=== PATIENT | female | born 1990 | race Hispanic/Latino ===

== ENCOUNTER 2016-07-21 21:35 | Emergency (ER) | payer MEDICAID, OTHER ==
--- NOTE | 2016-07-21 22:09 | ED PDOC ---
Arrival/HPI <Keith Potts - Last Filed: 07/21/16 22:51> - History of Present Illness Time/Duration: Prior to Arrival, 1 hour Quality: Dullness Severity Level: 9 Activities at Onset: Rest, Light <Jean Claude Al - Last Filed: 07/21/16 23:45> - General Chief Complaint: Chest Pain Time Seen by Provider: 07/21/16 21:42 - History of Present Illness Narrative History of Present Illness (Text): 07/21/16 21:59 This is 26 year old female without PMH presenting to the ED with complaint of substernal chest pain since 9pm this evening. The patient notes that she was putting her children to bed when she started to feel a dull substernal chest pain. The patient states that the pain increased and she started to notice weakness in her upper extremities followed by her lower extremities. The patient reports that the pain is positional and reproducible with palpation. The patient has never had an episode of chest pain in the past. The patient denies fever, chills, headache, palpitations, SOB, cough, abdominal pain, dysphagia, changes in bowel/bladder, and extremity paresthesias. PMH: None Allergy: NKDA Surg: x 2, appendectomy Soc: Denies Tobacco/Illicit Drugs, occasional EtOH (Jean Claude Al) Past Medical History - Provider Review Nursing Documentation Reviewed: Yes - Past History Past History: No Previous - Infectious Disease Hx of Infectious Diseases: None - Tetanus Immunization Tetanus Immunization: Unknown - Reproductive Menopause: No - Past Medical History Past Medical History: No Previous - Psychiatric Hx Substance Use: No <Jean Claude Al - Last Filed: 07/21/16 23:45> Family/Social History - Physician Review Nursing Documentation Reviewed: Yes Family/Social History: No Known Family HX Smoking Status: Never Smoked Hx Alcohol Use: No Hx Substance Use: No <Jean Claude Al - Last Filed: 07/21/16 23:45> Allergies/Home Meds <Keith Potts - Last Filed: 07/21/16 22:51> <Jean Claude Al - Last Filed: 07/21/16 23:45> Allergies/Adverse Reactions: Allergies No Known Allergies Allergy (Verified 07/21/16 21:49) Home Medications: Home Meds Medication Instructions Recorded Confirmed No Known Home Med 07/21/16 07/21/16 Review of Systems - Physician Review All systems were reviewed & negative as marked: Yes - Review of Systems Constitutional: absent: Fatigue, Fevers Eyes: absent: Vision Changes, Photophobia ENT: absent: Hearing Changes, Tinnitus Respiratory: absent: SOB, Cough Cardiovascular: Chest Pain. absent: Palpitations, Edema Gastrointestinal: absent: Abdominal Pain, Nausea, Vomiting Genitourinary Female: absent: Dysuria, Frequency Musculoskeletal: absent: Arthralgias, Back Pain Skin: absent: Rash, Pruritis Neurological: absent: Headache, Dizziness Endocrine: absent: Diaphoresis Hemo/Lymphatic: absent: Adenopathy Psychiatric: absent: Anxiety <Jean Claude Al - Last Filed: 07/21/16 23:45> Physical Exam Vital Signs Reviewed: Yes Temperature: Afebrile Blood Pressure: Hypertensive Pulse: Tachycardic Respiratory Rate: Normal Appearance: Positive for: Well-Appearing, Non-Toxic Pain Distress: Mild Mental Status: Positive for: Alert and Oriented X 3 - Systems Exam Head: Present: Atraumatic, Normocephalic Pupils: Present: PERRL. No: Pinpoint Extroacular Muscles: Present: EOMI. No: Entrapment Conjunctiva: Present: Normal. No: Icteric Mouth: Present: Moist Mucous Membranes Neck: Present: Normal Range of Motion. No: Lymphadenopathy Respiratory/Chest: Present: Clear to Auscultation, Good Air Exchange. No: Respiratory Distress, Accessory Muscle Use Cardiovascular: Present: Normal S1, S2, Peripheal Pulses Present, Tachycardic. No: Murmurs Abdomen: Present: Normal Bowel Sounds. No: Tenderness, Distention, Peritoneal Signs Upper Extremity: Present: Normal Inspection, Normal ROM, NORMAL PULSES, Neurovascularly Intact. No: Cyanosis, Edema Lower Extremity: Present: Normal Inspection, NORMAL PULSES, Neurovascularly Intact. No: Edema, CALF TENDERNESS Neurological: Present: GCS=15 Skin: Present: Warm, Dry, Normal Color. No: Rashes Psychiatric: Present: Alert, Oriented x 3 <Jean Claude Al - Last Filed: 07/21/16 23:45> Vital Signs Temp Pulse Resp BP Pulse Ox 07/21/16 21:47 97.9 F 100 H 22 153/86 H 100 Medical Decision Making - Lab Interpretations I have reviewed the lab results: Yes - RAD Interpretation Patient Representative: ED Physician - EKG Interpretation Interpreted by ED Physician: Yes Type: 12 lead EKG <Keith Potts - Last Filed: 07/21/16 22:51> Re-evaluation Time: 23:00 Reassessment Condition: Re-examined - Lab Interpretations Interpretation: No clinic. lab abnormalty (K= 3.2- replaced with 40meq K-Dur) - RAD Interpretation Patient Representative: Radiologist - EKG Interpretation Interpreted by ED Physician: Yes Type: 12 lead EKG <Jean Claude Al - Last Filed: 07/21/16 23:45> ED Course and Treatment: Impression: Pt seen and evaluated with medical billing associate. Pt, with no significan past medical history, presented for positional chest pain since 21:00 tonight, reproducible with palpation. Aware and agree with HPI, clinical findings, plan , and management. Plan: -- EKG -- CXR -- Labs, cardiac enzymes, TSH -- Urinalysis -- Xanax -- Reassess and disposition (Keith Potts) 07/21/16 22:19 Impression: This is 26 year old female without PMH presenting to the ED with complaint of substernal chest pain since 9pm this evening. The patient appears anxious presently. Differential: Anxiety Attack MO ACS Angina GERD Plan: EKG CXR CBC, CMP, Cardiac ISO, Mag, Phos, TSH Xanax 0.5mg Prior Visits: No inpatient admissions Progress Note: Patient seen and examined at the bedside. Patient appears anxious. Patient sating well on room air, tachycardic on telemetric monitoring. EKG showed no abnormalities. Patient will be worked up for cardiac abnormality, and will be given xanax in the mean time for anxiety relief. Lab work pending. 07/21/16 23:24 The patient was re-evaluated after dose of xanax. Patient reports feeling much better. Troponin pending. Labs grossly normal. Potassium 3.2, replaced with 40meq K-dur. Patient ambulating without issue. Patient denies chest pain at this time. 07/21/16 23:41 Patient agreeable for discharge. Patient feels fine, and states she is OK to go home. At this time, the patient is medically stable for discharge. Patient instructed to follow up with her PMD as an outpatient. (Jean Claude Al) - Lab Interpretations Lab Results: 07/21/16 22:45 07/21/16 22:45 Lab Results 07/21/16 23:00: Urine Color Yellow, Urine Appearance Clear, Urine pH 7.0, Ur Specific [place] 1.015, Urine Protein Negative, Urine Glucose (UA) Negative, Urine Ketones Negative, Urine Blood Trace-lysed H, Urine Nitrate Negative, Urine Bilirubin Negative, Urine Urobilinogen 0.2, Ur Leukocyte Esterase Negative , Urine RBC 0 - 2, Urine WBC 0 - 2, Ur Epithelial Cells 1 - 3, Urine Bacteria Occ, Urine HCG, Qual Negative 07/21/16 22:45: WBC 6.8 D, RBC 4.13, Hgb 11.8 L, Hct 36.4, MCV 88.1, MCH 28.6, MCHC 32.4, RDW 13.4, Plt Count 272, MPV 11.3 H, Gran % 51.0, Lymph % (Auto) 40.5 H, [place] % (Auto) 6.3 H, Eos % (Auto) 1.9, Baso % (Auto) 0.3, Gran # 3.49, Lymph # 2.8, [place] # 0.4, Eos # 0.1, Baso # 0.02, Sodium 137, Potassium 3.2 L, Chloride 101, Carbon Dioxide 24, Anion Gap 15, BUN 12, Creatinine 0.7, Est GFR ( Amer) > 60, Est GFR (Non-Af Amer) > 60, Random Glucose 102, Calcium 9.0 , Phosphorus 2.8, Magnesium 1.8, Total Bilirubin 1.0, AST 22, ALT 16, Alkaline Phosphatase 102, Lactate Dehydrogenase 412, Total Creatine Kinase 45, Troponin I < 0.01, Total Protein 8.4 H, Albumin 4.6, Globulin 3.8, Albumin/Globulin Ratio 1.2 - RAD Interpretation Narrative RAD Interpretations (Text): 07/21/16 23:44 Negative for acute pulmonary pathology (Jean Claude Al) Radiology Orders: 07/21/16 22:26 CHEST PORTABLE [RAD] Stat - EKG Interpretation EKG Interpretation (Text): 07/21/16 22:24 NSR, no st or t wave abnormalities (Jean Claude Al) - Medication Orders Current Medication Orders: Discontinued Medications Alprazolam (Xanax) 0.5 mg PO STAT STA PRN Reason: Protocol Stop: 07/21/16 22:26 Last Admin: 07/21/16 23:02 Dose: 0.5 MG Behavioural Document 07/21/16 23:02 (Rec: 07/21/16 23:02 [facility] [place]-[id number]) Maintenance Maintenance Dose No Nonmedicinal Nonmedicinal Interventions See nurse's notes Behavior Behavior for Medication: Anxiety Potassium Chloride (K-Dur 20 Meq Er Tab) 40 meq PO STAT STA Stop: 07/21/16 23:20 - PA / JOB DEVELOPMENT SPECIALIST / Resident Statement / has reviewed & agrees with the documentation as recorded. / has examined the patient and agrees with the treatment plan. <Keith Potts - Last Filed: 07/21/16 22:51> Disposition/Present on Arrival <Keith Potts - Last Filed: 07/21/16 22:51> - Present on Arrival Any Indicators Present on Arrival: No History of DVT/PE: No History of Uncontrolled Diabetes: No Urinary Catheter: No History of Decub. Ulcer: No History Surgical Site Infection Following: None - Disposition Have Diagnosis and Disposition been Completed?: Yes Disposition Time: 23:30 Patient Plan: Discharge <Jean Claude Al - Last Filed: 07/21/16 23:45> - Disposition Diagnosis: Chest pain Disposition: HOME/ ROUTINE Condition: GOOD Discharge Instructions (ExitCare): Chest Pain (ED), Anxiety (ED) Print Language: SALVADOREAN Additional Instructions: 1.) Follow up with PMD following discharge 2.) If symptoms return, please return to the ED for evaluation
[2016-07-21 22:54] LABS: ADD MANUAL DIFF? NO
[2016-07-21 23:10] LABS: URINE BILIRUBIN NEGATIVE (NEGATIVE); URINE BLOOD TRACE-LYSED (NEGATIVE); URINE GLUCOSE (UA) NEGATIVE (NEGATIVE); URINE KETONE NEGATIVE (NEGATIVE); URINE LEUKOCYTE ESTERASE NEGATIVE Leu/uL (NEGATIVE); URINE PROTEIN NEGATIVE mg/dL (<30 mg/dL); URINE UROBILINOGEN 0.2 E.U./dL (<1 E.U./dL)
[2016-07-21 23:10] LABS: ALB/GLOB RATIO 1.2 (1.1-1.8); ALKALINE PHOSPHATASE 102 U/L (38-133); ALT/SGPT 16 U/L (7-56); AST/SGOT 22 U/L (15-39); BLOOD UREA NITROGEN 12 mg/dL (7-21); CARBON DIOXIDE 24 mmol/L (21-33); CHLORIDE 101 mmol/L (98-107); GFR AFRICAN-AMERICAN > 60; GLUCOSE,RANDOM 102 mg/dL (70-110); MAGNESIUM 1.8 mg/dL (1.7-2.2); PHOSPHOROUS 2.8 mg/dL (2.5-4.5); POTASSIUM 3.2 mmol/L (3.6-5.0); SODIUM 137 mmol/L (132-148); TOTAL PROTEIN 8.4 g/dL (5.8-8.3)
[2016-07-21 23:11] LABS: BASO # 0.02 K/mm3 (0.0-2.0); BASO % 0.3 % (0.0-3.0); EOS # 0.1 (0.0-0.7); EOS % 1.9 % (1.5-5.0); GRAN # 3.49 (1.4-6.5); HEMATOCRIT 36.4 % (36.0-48.0); LYMPH # 2.8 (1.2-3.4); LYMPH % 40.5 % (22.0-35.0); MEAN CELL VOLUME 88.1 fL (80.0-105.0); MEAN CORPUSCULAR HEMOGLOBIN 28.6 pg (25.0-35.0); MEAN CORPUSCULAR HGB CONC 32.4 g/dl (31.0-37.0); MEAN PLATELET VOLUME 11.3 fl (7.0-11.0); MONO # 0.4 (0.1-0.6); MONO % 6.3 % (1.0-6.0); PLATELET COUNT 272 10^3/uL (120.0-450.0); RED CELL DISTRIBUTION WIDTH 13.4 % (11.5-14.5); WHITE BLOOD COUNT 6.8 10^3/ul (4.5-11.0)
[2016-07-21 23:14] LABS: URINE APPEARANCE CLEAR (CLEAR); URINE COLOR YELLOW (YELLOW)
[2016-07-21 23:19] LABS: URINE BACTERIA OCC (NEG); URINE RBC 0 - 2 /hpf (0-2); URINE WBC 0 - 2 /hpf (0-6)
[2016-07-21] MEDS ORDERED: Potassium Chloride 20 mEq ER Tab PO STA (23:19)
[2016-07-21 23:24] LABS: TROPONIN I < 0.01 ng/mL
[2016-07-22 01:48] VITALS: BP 138/80; PULSE 84; RESP 18; TEMP 98; O2SAT 99
--- NOTE | 2016-07-22 08:47 | RAD ---
HISTORY: chest pain COMPARISON: No prior. FINDINGS: LUNGS: No active pulmonary disease. PLEURA: No significant pleural effusion identified, no pneumothorax apparent. CARDIOVASCULAR: Normal. OSSEOUS STRUCTURES: No significant abnormalities. VISUALIZED UPPER ABDOMEN: Normal. OTHER FINDINGS: None. IMPRESSION: No active disease.
--- NOTE | 2016-07-22 15:43 | CARD ---
APPROVED REPORT EKG Measurement Heart [id number] <Conclusion> Normal sinus rhythm Normal ECG
== END 2016-07-21 23:55 | disposition home or self-care (01) ==
LOC: ED 21:35
DX: R07.9 Chest pain, unspecified (principal)

== ENCOUNTER 2016-10-14 14:00 | Emergency (ER) | payer MEDICAID, OTHER ==
--- NOTE | 2016-10-14 14:34 | ED PDOC ---
Arrival/HPI - General Chief Complaint: Headache Time Seen by Provider: 10/14/16 14:23 Historian: Patient - History of Present Illness Narrative History of Present Illness (Text): 10/14/16 14:34 26 year old female presents to the emergency department with headache, fever/ chills, body aches, and neck pain for the past two days. Patient states headache is worse when bending down. Patient also reports frequency, pain on urination, suprapubic discomfort. Denies cough or photophobia. Time/Duration: < week Symptom Onset: Gradual Symptom Course: Unchanged Modifying Factors (Text): None Past Medical History - Provider Review Nursing Documentation Reviewed: Yes - Past History Past History: No Previous - Infectious Disease Hx of Infectious Diseases: None - Tetanus Immunization Tetanus Immunization: Unknown - Past Medical History Past Medical History: No Previous - Psychiatric Hx Psychophysiologic Disorder: No Hx Substance Use: No - Surgical History Hx Section: Yes Family/Social History - Physician Review Nursing Documentation Reviewed: Yes Family/Social History: Unknown Family HX Smoking Status: Never Smoked Hx Alcohol Use: No Hx Substance Use: No Allergies/Home Meds Allergies/Adverse Reactions: Allergies No Known Allergies Allergy (Verified 10/14/16 14:17) Review of Systems - Physician Review All systems were reviewed & negative as marked: Yes Physical Exam - Physical Exam Narrative Physical Exam (Text): - Review of Systems Constitutional: Fevers, Chills absent: Fatigue, Weight Change Eyes: Normal absent: photophobia ENT: Normal Respiratory: Normal absent: SOB, Cough, Sputum Cardiovascular: Normal absent: Chest pain, Palpitations, Syncope Gastrointestinal: Suprapubic discomfort absent: Diarrhea, Nausea, Vomiting Genitourinary: Dysuria, Frequency absent: Hematuria Musculoskeletal: Arthralgias, Back Pain, Neck Pain Skin: Normal Neurological: Normal absent: Focal Weakness Endocrine: Normal Hemo/Lymphatic: Normal Psychiatric: Normal - Physical exam Patient appears age appropriate, speaking full sentences without difficulty - Systems Exam Head: Present: Atraumatic, Normocephalic Pupils: Present: PERRL Extraocular Muscles: Present: EOMI Conjunctiva: Present: Normal Mouth: Present: Moist Mucous Membranes Neck: Present: Tenderness to palpation, worse with range of motion Respiratory/Chest: Present: Clear to Auscultation, Good Air Exchange. No: Respiratory Distress, Accessory Muscle Use, Tachypneic Cardiovascular: Present: Regular Rate and Rhythm, Normal S1, S2, Peripheral Pulses Present. No: Murmurs Abdomen: Present: Suprapubic tenderness to palpation, Normal Bowel Sounds No: Peritoneal Signs, Rebound, Guarding, Distention Back: Present: Normal Inspection. No: Midline Tenderness, Paraspinal Tenderness Upper Extremity: Present: Normal Inspection. No: Cyanosis, Edema Lower Extremity: Present: Normal Inspection. No: Edema Neurological: Present: GCS=15, Speech Normal, cranial nerves II through XII fully intact with no cerebellar abnormality, neuro-sensory fully intact. No focal neurological deficits. Skin: Present: Warm, Dry, Normal Color. No: Rashes Lymphatic: Present: OX3, NI, NC Psychiatric: Present: Alert, Oriented x 3, Normal Insight, Normal Concentration Vital Signs Reviewed: Yes Vital Signs Temp Pulse Resp BP Pulse Ox 10/14/16 18:26 98.6 F 86 19 100/59 L 100 10/14/16 16:41 99.7 F H 10/14/16 14:57 102.6 F H 10/14/16 14:46 102.6 F H 10/14/16 14:17 99.8 F H 118 H 18 116/74 97 Temperature: Afebrile Blood Pressure: Normal Pulse: Tachycardic Respiratory Rate: Normal Appearance: Positive for: Well-Appearing, Non-Toxic Mental Status: Positive for: Alert and Oriented X 3 Medical Decision Making ED Course and Treatment: Impression: 26 year old female presents to the emergency department with headache, fever/chills, body aches, and neck pain for the past two days. On physical exam, patient has tenderness to palpation of the neck, worse with range of motion, and suprapubic tenderness to palpation. Differential Diagnosis include but are not limited to: Viral illness vs meningitis vs pyelonephritis Plan: -- Blood culture -- Reassess and disposition Prior Visits: Notes and results from previous visits were reviewed. Patient had bloodwork done yesterday which showed Leukocytosis. No electrolyte abnormalities. Urine showed evidence of infection. Microbiology showed gram negative rods. Progress Notes: PROCEDURE: LUMBAR PUNCTURE Performed by the emergency provider Time: 15:45 Consent: Informed consent, after discussion of the risks, benefits, and alternatives to the procedure, was obtained Timeout: A timeout to verify the correct patient, procedure, and site was performed immediately prior to the procedure. Indication: r/o meningitis Patient's position: sitting. Anesthesia: Local anesthesia: lido/epi. See MAR for details. Preparation: Patient was prepped and draped in the usual sterile fashion and sterile technique was used. The landmarks were identified. Needle size: A 20 gauge spinal needle. Lumbar entry space: L4-5 level. Fluid appearance: Clear Post-procedure: Site cleansed and adhesive bandage applied. The patient tolerated the procedure well with no immediate complications. CSF was sent to lab for analysis. PROCEDURE: CT Abdomen and Pelvis with contrast Cleaner And Polisher : Gerard Crandall MD Report Date : 10/14/2016 16:36:59 KIDNEYS AND URETERS: There is a poorly defined area of edema and diminished enhancement in the upper pole of the left kidney. This finding is suspicious for pyelonephritis. Clinical correlation is suggested. This finding is best seen on axial image 70 and coronal image 68. There is also minimal mural enhancement of the proximal ureter which is also seen associated with urinary tract infection. IMPRESSION: Patchy poorly defined area of diminished enhancement in the upper pole of the left kidney suspicious for pyelonephritis. There is also mural thickening in the urinary bladder which may represent cystitis Chest xray interpreted by ED physician shows no pneumothorax, no cardiomegaly, no infiltrates 10/14/16 19:14 pt's leukocytosis resolving on today's labs CSF with no evidence for meningitis pt is afebrile and hemodynamically stable, in no distress states she feels comfortable being dc'd home with outpatient f/u Pt states she understands to return to the ER right away for new or worsening symptoms or for inability to f/u with PMD or specialist as instructed. Patient states that she fully agrees with and understands discharge instructions. States that she agrees with the plan and disposition. Verbalized and repeated discharge instructions and plan. I have given the patient opportunity to ask any additional questions. - Critical Care Critical Care Minutes: 30 minutes - Lab Interpretations Lab Results: 10/14/16 14:45 10/14/16 14:45 Lab Results 10/14/16 16:15: Fluid Type Cancelled, CSF Volume Cancelled, CSF Appearance Cancelled, CSF WBC Cancelled, CSF RBC Cancelled, CSF Total Cell Counted Cancelled, CSF Neutrophils Cancelled, CSF Lymphocytes Cancelled, CSF Monos/ Macrophages Cancelled, CSF Comment Cancelled 10/14/16 16:15: CSF Glucose 61, CSF Total Protein 22.0 10/14/16 15:57: Fluid Type Spinal fluid, CSF Volume 1, CSF Appearance Clear/ colorless, CSF WBC 2.0, CSF RBC 40.0 H, CSF Total Cell Counted Pending 10/14/16 15:00: Urine Color Yellow, Urine Appearance Cloudy, Urine pH 7.5, Ur Specific [place] 1.020, Urine Protein 30 H, Urine Glucose (UA) Negative, Urine Ketones Negative, Urine Blood Moderate H, Urine Nitrate Positive H, Urine Bilirubin Negative, Urine Urobilinogen >=8.0, Ur Leukocyte Esterase Small H, Urine RBC 5 - 10, Urine WBC Tntc, Ur Epithelial Cells 10 - 12, Urine Bacteria Many 10/14/16 14:45: Sodium 138, Chloride 103, Potassium 3.5 L, Carbon Dioxide 24, Anion Gap 15, BUN 8, Creatinine 0.8, Est GFR ( Amer) > 60, Est GFR (Non- Af Amer) > 60, Random Glucose 109, Calcium 9.1, Total Bilirubin 1.4 H, AST 63 H , ALT 74 H, Alkaline Phosphatase 135 H, Total Protein 8.3, Albumin 4.4, Globulin 3.9, Albumin/Globulin Ratio 1.1 10/14/16 14:45: pO2 58 H, VBG pH 7.36, VBG pCO2 44.0, VBG HCO3 24.9, VBG Total CO2 26.3, VBG O2 Sat (Calc) 92.6 H, VBG Base Excess -0.8 L, VBG Potassium 3.3 L , Sodium 139.0, Chloride 108.0 H, Glucose 110 H, Lactate 1.2, FiO2 21.0, Venous Blood Potassium 3.3 L 10/14/16 14:45: PT 12.8 H, INR 1.19 H, APTT 31.2 H 10/14/16 14:45: WBC 11.0 D, RBC 3.93, Hgb 11.1 L, Hct 34.1 L, MCV 86.8, MCH 28.2, MCHC 32.6, RDW 13.7, Plt Count 249, MPV 10.3, Gran % 82.6 H, Lymph % (Auto ) 9.4 L, [place] % (Auto) 7.8 H, Eos % (Auto) 0.0 L, Baso % (Auto) 0.2, Gran # 9.06 H, Lymph # 1.0 L, [place] # 0.9 H, Eos # 0.0, Baso # 0.02 - RAD Interpretation Radiology Orders: 10/14/16 14:36 CHEST PORTABLE [RAD] Stat 10/14/16 14:39 ABD & PELVIS IV CONTRAST ONLY [CT] Stat - Medication Orders Current Medication Orders: Discontinued Medications Acetaminophen (Tylenol 325mg Tab) 975 mg PO STAT STA Stop: 10/14/16 14:38 Last Admin: 10/14/16 14:57 Dose: 975 mg Ceftriaxone Sodium (Rocephin 2 Gm Ivpb) 2 gm in 100 mls @ 100 mls/hr IVPB STAT STA PRN Reason: Protocol Stop: 10/14/16 15:34 Last Admin: 10/14/16 15:15 Dose: 100 mls/hr Sodium Chloride (Sodium Chloride 0.9%) 2,000 mls @ 1,000 mls/hr IV .Q2H STA Stop: 10/14/16 16:36 Last Admin: 10/14/16 15:02 Dose: 1,000 mls/hr Vancomycin HCl (Vancomycin 1gm) 1 gm in 250 mls @ 133.333 mls/hr IVPB STAT STA PRN Reason: Protocol Stop: 10/14/16 16:38 Last Admin: 10/14/16 16:48 Dose: 133.333 mls/hr Iohexol (Omnipaque 350 100 Ml) Confirm Administered Dose 350 mg .ROUTE .STK-MED ONE Stop: 10/14/16 14:43 Ketorolac Tromethamine (Toradol) 30 mg IVP STAT STA Stop: 10/14/16 14:38 Last Admin: 10/14/16 14:57 Dose: 30 mg Morphine Sulfate (Morphine) 6 mg IVP STAT STA Stop: 10/14/16 15:47 Last Admin: 10/14/16 15:51 Dose: 6 mg Morphine Sulfate (Morphine) Confirm Administered Dose 10 mg .ROUTE .STK-MED ONE Stop: 10/14/16 15:52 Last Admin: 10/14/16 16:45 Dose: - Scribe Statement The provider has reviewed the documentation as recorded by the Isacc Vo Provider Scribe Attestation: All medical record entries made by the Scribe were at my direction and personally dictated by me. I have reviewed the chart and agree that the record accurately reflects my personal performance of the history, physical exam, medical decision making, and the department course for this patient. I have also personally directed, reviewed, and agree with the discharge instructions and disposition. Disposition/Present on Arrival - Present on Arrival Any Indicators Present on Arrival: No History of DVT/PE: No History of Uncontrolled Diabetes: No Urinary Catheter: No History of Decub. Ulcer: No History Surgical Site Infection Following: None - Disposition Have Diagnosis and Disposition been Completed?: Yes Diagnosis: Pyelonephritis Disposition: HOME/ ROUTINE Disposition Time: 19:20 Patient Plan: Discharge Condition: GOOD Discharge Instructions (ExitCare): Acute Pyelonephritis (ED), Fever in Adults ( ED) Additional Instructions: PLEASE RETURN TO THE EMERGENCY DEPARTMENT FOR NEW OR WORSENING SYMPTOMS. RETURN RIGHT AWAY IF YOU CANNOT FOLLOW UP WITH YOUR PRIMARY CARE DOCTOR, CLINIC, OR SPECIALIST IN 1-2 DAYS. RETURN TO THE ER RIGHT AWAY FOR FEVER, CHILLS, WEAKNESS, BACKK OR NECK PAIN, HEADACHE. Prescriptions: Cefuroxime Axetil [Cefuroxime] 500 mg PO BID PRN #12 tablet PRN Reason: Pain, Moderate (4-7) Ibuprofen [Motrin] 600 mg PO Q8 PRN #12 tab PRN Reason: Pain, Moderate (4-7) oxyCODONE/Acetaminophen [Percocet 5/325 mg Tab] 1 ea PO BID PRN #6 tab PRN Reason: Pain, Severe (8-10) Referrals: Berna Worley, [Primary Care Provider] - Follow up with primary Bouchra Sung MD [Staff Provider] - Follow up with primary [facility] at [facility] [Outside] - Follow up with primary Forms: WORK NOTE
[2016-10-14] MEDS ORDERED: cefTRIAXone 2 GM IN NS 2 GM/100 ML BAG IVPB STA (14:35)
[2016-10-14] MEDS ORDERED: Vancomycin 1gm in NS 250ml 250 ML IVPB STA (14:35)
[2016-10-14] MEDS ORDERED: Sodium Chloride 0.9% 2,000 ML IV STA (14:37)
[2016-10-14] MEDS ORDERED: Iohexol 350 MG/100 ML VIAL ONE (14:42)
[2016-10-14] MEDS ORDERED: Vancomycin 1gm in NS 250ml 1 GM/250 ML BAG IVPB STA (14:46)
[2016-10-14 15:03] LABS: ADD MANUAL DIFF? NO
[2016-10-14 15:08] LABS: VENOUS BLOOD GAS BASE EXCESS -0.8 mmol/L (0.0-2.0); VENOUS BLOOD PH 7.36 (7.32-7.43)
[2016-10-14 15:13] LABS: BASO # 0.02 K/mm3 (0.0-2.0); BASO % 0.2 % (0.0-3.0); GRAN # 9.06 (1.4-6.5); GRAN % 82.6 % (50.0-68.0); HEMATOCRIT 34.1 % (36.0-48.0); LYMPH % 9.4 % (22.0-35.0); MEAN CELL VOLUME 86.8 fL (80.0-105.0); MEAN CORPUSCULAR HEMOGLOBIN 28.2 pg (25.0-35.0); MEAN CORPUSCULAR HGB CONC 32.6 g/dl (31.0-37.0); MEAN PLATELET VOLUME 10.3 fl (7.0-11.0); MONO # 0.9 (0.1-0.6); MONO % 7.8 % (1.0-6.0); PLATELET COUNT 249 10^3/uL (120.0-450.0); RED CELL DISTRIBUTION WIDTH 13.7 % (11.5-14.5)
[2016-10-14 15:17] LABS: ALB/GLOB RATIO 1.1 (1.1-1.8); ALKALINE PHOSPHATASE 135 U/L (38-133); ALT/SGPT 74 U/L (7-56); AST/SGOT 63 U/L (15-39); BILIRUBIN,TOTAL 1.4 mg/dL (0.2-1.3); BLOOD UREA NITROGEN 8 mg/dL (7-21); CALCIUM 9.1 mg/dL (8.4-10.5); CARBON DIOXIDE 24 mmol/L (21-33); CHLORIDE 103 mmol/L (98-107); GFR AFRICAN-AMERICAN > 60; GLUCOSE,RANDOM 109 mg/dL (70-110); POTASSIUM 3.5 mmol/L (3.6-5.0); SODIUM 138 mmol/L (132-148); TOTAL PROTEIN 8.3 g/dL (5.8-8.3)
[2016-10-14 15:19] LABS: PH,URINE 7.5 (4.7-8.0); URINE BILIRUBIN NEGATIVE (NEGATIVE); URINE BLOOD MODERATE (NEGATIVE); URINE GLUCOSE (UA) NEGATIVE (NEGATIVE); URINE KETONE NEGATIVE (NEGATIVE); URINE LEUKOCYTE ESTERASE SMALL Leu/uL (NEGATIVE); URINE PROTEIN 30 mg/dL (<30 mg/dL); URINE UROBILINOGEN >=8.0 E.U./dL (<1 E.U./dL)
[2016-10-14 15:19] LABS: INR 1.19 (0.93-1.08); PARTIAL THROMBOPLASTIN TIME 31.2 Seconds (23.7-30.8)
[2016-10-14 15:25] LABS: URINE APPEARANCE CLOUDY (CLEAR); URINE COLOR YELLOW (YELLOW)
--- NOTE | 2016-10-14 15:29 | RAD ---
HISTORY: Fever COMPARISON: 07/21/2016. FINDINGS: LUNGS: The lungs are well inflated and clear. PLEURA: No significant pleural effusion identified, no pneumothorax apparent. CARDIOVASCULAR: Normal. OSSEOUS STRUCTURES: No significant abnormalities. VISUALIZED UPPER ABDOMEN: Normal. OTHER FINDINGS: None. IMPRESSION: No active pulmonary disease.
[2016-10-14 15:41] LABS: URINE BACTERIA MANY (NEG); URINE WBC TNTC /hpf (0-6)
--- NOTE | 2016-10-14 16:38 | CT ---
PROCEDURE: CT Abdomen and Pelvis with contrast HISTORY: pelvic pain, ro abscess COMPARISON: None. TECHNIQUE: Contrast dose: 100 cc of Omni 350 Radiation dose: Total exam DLP = 506 mGy-cm. This CT exam was performed using one or more of the following dose reduction techniques: Automated exposure control, adjustment of the mA and/or kV according to patient size, and/or use of iterative reconstruction technique. FINDINGS: LOWER THORAX: Unremarkable. LIVER: Unremarkable. No gross lesion or ductal dilatation. GALLBLADDER AND BILE DUCTS: Unremarkable. PANCREAS: Unremarkable. No gross lesion or ductal dilatation. SPLEEN: Unremarkable. ADRENALS: Unremarkable. No mass. KIDNEYS AND URETERS: There is a poorly defined area of edema and diminished enhancement in the upper pole of the left kidney. This finding is suspicious for pyelonephritis. Clinical correlation is suggested. This finding is best seen on axial image 70 and coronal image 68. There is also minimal mural enhancement of the proximal ureter which is also seen associated with urinary tract infection. VASCULATURE: Unremarkable. No aortic aneurysm. BOWEL: Unremarkable. No obstruction. No gross mural thickening. APPENDIX: Normal appendix. PERITONEUM: Unremarkable. No free fluid. No free air. LYMPH NODES: Unremarkable. No enlarged lymph nodes. BLADDER: There is mild mural thickening of the anterior wall of the bladder. This could be related to cystitis. REPRODUCTIVE: Small multiple bilateral ovarian cysts are seen. There is no fluid in the cul-de-sac. The uterus is normal in size. BONES: No acute fracture. OTHER FINDINGS: None. IMPRESSION: Patchy poorly defined area of diminished enhancement in the upper pole of the left kidney suspicious for pyelonephritis. There is also mural thickening in the urinary bladder which may represent cystitis.
[2016-10-14 17:22] LABS: FLUID TYPE SPINAL FLUID
[2016-10-14 18:26] VITALS: BP 100/59; PULSE 86; RESP 19; TEMP 98.6; O2SAT 100
[2016-10-14 22:04] LABS: CSF TOTAL COUNT 0 (0-0)
[2016-10-14 22:06] LABS: CSF NEUTROPHIL 0 % (0-0)
== END 2016-10-14 19:30 | disposition home or self-care (01) ==
LOC: ED 14:00
DX: N10 Acute pyelonephritis (principal)
CPT/HCPCS: 71010; 74177; 80053; 81001; 82803; 82945; 83615; 84157; 85025; 85610; 85730; 86618; 86695; 86696; 87015; 87040; 87070; 87086; 87116; 87181; 87206; 87491; 87536; 87591; 89050; 96374; 96375; 99285; J0696; J1885; J2270; J7040; Q9967

== ENCOUNTER 2016-10-15 14:19 | Inpatient (IN) | payer OTHER ==
[2016-10-15 14:33] VITALS: BMI 25.8
[2016-10-15] MEDS ORDERED: Sodium Chloride 0.9% 1,000 ML IV STA ×3 (14:41→19:51)
[2016-10-15] MEDS ORDERED: cefTRIAXone 1 gm 1 GM/100 ML BAG IVPB STA (14:41)
--- NOTE | 2016-10-15 14:56 | ED PDOC ---
Arrival/HPI - General Chief Complaint: Back Pain Time Seen by Provider: 10/15/16 14:38 Historian: Patient - History of Present Illness Narrative History of Present Illness (Text): 10/15/16 14:53 26 y/o female, pmh including pylonephritis, nkda, c/o back pain with fever x 3 days. Pt. stated that she has been having back pain with generalized fever and chills for the past 3 days, seen at the ER yesterday with normal wbc and negative spinal tap, urine culture show +ecoli with sensitive to the fluoroquinolones and cephalosporins, CT abdomen and pelvis show +pylo and + cystis, here today because the pain still persist and not completely control, feels nausea and unable to tolerate po, no night sweat, no recent traveling, no palpitation, no rash, no numbness or tingling, no dizziness, no other medical or psychological complaints. Past Medical History - Provider Review Nursing Documentation Reviewed: Yes - Past History Past History: No Previous - Infectious Disease Hx of Infectious Diseases: None - Tetanus Immunization Tetanus Immunization: Unknown - Past Medical History Past Medical History: No Previous - Psychiatric Hx Psychophysiologic Disorder: No Hx Substance Use: No - Surgical History Hx Section: Yes Family/Social History - Physician Review Nursing Documentation Reviewed: Yes Family/Social History: Unknown Family HX Smoking Status: Never Smoked Hx Alcohol Use: No Hx Substance Use: No Allergies/Home Meds Allergies/Adverse Reactions: Allergies No Known Allergies Allergy (Verified 10/14/16 14:17) Review of Systems - Review of Systems Constitutional: Fatigue, Fevers Eyes: absent: Vision Changes ENT: absent: Hearing Changes Respiratory: absent: SOB, Cough Cardiovascular: absent: Chest Pain Gastrointestinal: absent: Abdominal Pain, Nausea, Vomiting Musculoskeletal: Back Pain, Myalgias. absent: Arthralgias, Neck Pain, Joint Swelling Skin: absent: Rash, Pruritis, Skin Lesions Psychiatric: absent: Anxiety, Depression, Suicidal Ideation Physical Exam Vital Signs Reviewed: Yes Vital Signs Temp Pulse Resp BP Pulse Ox 10/15/16 16:55 99.7 F H 10/15/16 14:20 99.7 F H 98 H 18 108/74 100 Temperature: Afebrile Blood Pressure: Normal Pulse: Regular Respiratory Rate: Normal Appearance: Positive for: Well-Appearing, Non-Toxic Pain Distress: Moderate Mental Status: Positive for: Alert and Oriented X 3 - Systems Exam Head: Present: Atraumatic, Normocephalic, Other (no temporal artery tenderness) . No: Tenderness, Contusion, Swelling, Ecchymosis, Abrasion, Laceration Pupils: Present: PERRL Extroacular Muscles: Present: EOMI Conjunctiva: Present: Normal Mouth: Present: Moist Mucous Membranes Neck: Present: Normal Range of Motion, Trachea Midline. No: Meningeal Signs, MIDLINE TENDERNESS, Paraspinal Tenderness, Lymphadenopathy Respiratory/Chest: Present: Clear to Auscultation, Good Air Exchange. No: Respiratory Distress, Accessory Muscle Use, Wheezes, Decreased Breath Sounds, Rales, Retracting, Rhonchi, Tachypneic, Tender to Palpation, Other Cardiovascular: Present: Regular Rate and Rhythm, Normal S1, S2. No: Murmurs Abdomen: Present: Normal Bowel Sounds. No: Tenderness, Distention, Peritoneal Signs, Guarding Back: Present: CVA Tenderness (+lt. cva tenderness), Other (visible LP puncture wound with no fluctuant abscess and no cellulitis/streaking/ulcer. ). No: Midline Tenderness, Paraspinal Tenderness, Pain with Leg Raise Upper Extremity: Present: Normal Inspection. No: Cyanosis, Edema Lower Extremity: Present: Normal Inspection. No: Edema Neurological: Present: GCS=15, Speech Normal Skin: Present: Warm, Dry, Normal Color. No: Rashes Lymphatic: No: Cervical Adenopathy Psychiatric: Present: Alert, Oriented x 3, Normal Insight, Normal Concentration Medical Decision Making ED Course and Treatment: 10/15/16 14:57 -labs/ua/urine culture/esr/crp/procalcitonin/blood culture -IVF/rocepine/reglan/tylenol -Observe and reassess 10/15/16 17:44 -chest xray from yesterday show no active disease -Urine culture sensitive to cephalosporin antibiotic -CSF culture show no acute findings. -CSF from yesterday show no signs of menigitis -Labs show no elevation of wbc. -UA show +UTI with yeast cell noted, diflucan 150mg po ordered. IV Rocephine ordered. -Pt. is sick looking, uncomfortable, unable to tolerate PO antibiotic at this point, will admit her for IV antibiotic until she improved. -Pt.'s PMD Dr. Alice Dutta doesn't come to [facility], will call the medical service oncall Dr. Ballesteros for admission. -I discussed with Dr. Gonzalez about the case, and he agreed on admission plan for IV antibiotic. 10/15/16 18:45 -I discussed the case with DR. Ballesteros, discussed about the labs/Urinalysis/urine culture result, request to add IV Cefipime and continue the IVF. -I discussed with Dr. Gonzalez and he will put in the admission order. - Lab Interpretations Lab Results: 10/15/16 15:16 10/15/16 16:30 Lab Results 10/15/16 16:30: Sodium 139, Potassium 4.2, Chloride 103, Carbon Dioxide 24, Anion Gap 16, BUN 7, Creatinine 0.6, Est GFR ( Amer) > 60, Est GFR (Non- Af Amer) > 60, Random Glucose 84, Calcium 9.3, Total Bilirubin 1.4 H, AST 71 H, ALT 74 H, Alkaline Phosphatase 132, Total Protein 8.5 H, Albumin 4.3, Globulin 4.2, Albumin/Globulin Ratio 1.0 L 10/15/16 15:20: Urine Color Yellow, Urine Appearance Sl cloudy, Urine pH 6.0, Ur Specific [place] 1.025, Urine Protein 30 H, Urine Glucose (UA) Negative, Urine Ketones Negative, Urine Blood Large H, Urine Nitrate Negative, Urine Bilirubin Negative, Urine Urobilinogen 4.0 H, Ur Leukocyte Esterase Moderate H, Urine RBC 2 - 5, Urine WBC 20 - 25, Ur Epithelial Cells Many, Urine Bacteria Mod , Urine Other [place]yeast 10/15/16 15:16: pO2 31, VBG pH 7.33, VBG pCO2 51.0, VBG HCO3 26.9, VBG O2 Sat ( Calc) 55.4, VBG Base Excess 0.2 10/15/16 15:16: WBC 8.7 D, RBC 3.80, Hgb 10.4 L, Hct 32.8 L, MCV 86.3, MCH 27.4 , MCHC 31.7, RDW 13.9, Plt Count 286, MPV 10.3, Gran % 72.3 H, Lymph % (Auto) 18.1 L, [place] % (Auto) 9.0 H, Eos % (Auto) 0.5 L, Baso % (Auto) 0.1, Gran # 6.27 , Lymph # 1.6, [place] # 0.8 H, Eos # 0.0, Baso # 0.01 Interpretation: Abnormal lab values (+UTI) - Medication Orders Current Medication Orders: Discontinued Medications Acetaminophen (Tylenol 325mg Tab) 650 mg PO STAT STA Stop: 10/15/16 14:53 Last Admin: 10/15/16 16:55 Dose: 650 mg Fluconazole (Diflucan) 150 mg PO STAT STA PRN Reason: Protocol Stop: 10/15/16 16:09 Last Admin: 10/15/16 17:30 Dose: 150 mg Ceftriaxone Sodium (Rocephin 1 Gram Ivpb) 1 gm in 100 mls @ 200 mls/hr IVPB STAT STA PRN Reason: Protocol Stop: 10/15/16 15:10 Last Admin: 10/15/16 16:54 Dose: 200 mls/hr Sodium Chloride (Sodium Chloride 0.9%) 1,000 mls @ 999 mls/hr IV .Q1H1M STA Stop: 10/15/16 15:41 Last Admin: 10/15/16 16:54 Dose: 999 mls/hr Ketorolac Tromethamine (Toradol) 30 mg IVP STAT STA Stop: 10/15/16 14:53 Last Admin: 10/15/16 16:55 Dose: 30 mg Metoclopramide HCl (Reglan) 10 mg IVP STAT STA Stop: 10/15/16 14:53 Last Admin: 10/15/16 16:54 Dose: 10 mg - PA / ELECTRIC MOTOR ANALYST / Resident Statement MD/DO has reviewed & agrees with the documentation as recorded. Disposition/Present on Arrival - Present on Arrival Any Indicators Present on Arrival: No History of DVT/PE: No History of Uncontrolled Diabetes: No Urinary Catheter: No History of Decub. Ulcer: No History Surgical Site Infection Following: None - Disposition Have Diagnosis and Disposition been Completed?: Yes Diagnosis: Headache, Pyelonephritis, Failure of outpatient treatment Disposition: HOSPITALIZED Disposition Time: 16:37 Patient Plan: Observation Patient Problems: Current Active Problems Problem Status Onset Headache Acute Pyelonephritis Acute Failure of outpatient treatment Acute Condition: GOOD Referrals: Alice Dutta MD [Primary Care Provider] - Follow up with primary
[2016-10-15 15:30] LABS: URINE BILIRUBIN NEGATIVE (NEGATIVE); URINE BLOOD LARGE (NEGATIVE); URINE GLUCOSE (UA) NEGATIVE (NEGATIVE); URINE KETONE NEGATIVE (NEGATIVE); URINE LEUKOCYTE ESTERASE MODERATE Leu/uL (NEGATIVE); URINE PROTEIN 30 mg/dL (<30 mg/dL)
[2016-10-15 15:31] LABS: URINE APPEARANCE SL CLOUDY (CLEAR); URINE COLOR YELLOW (YELLOW)
[2016-10-15 15:43] LABS: URINE BACTERIA MOD (NEG); URINE EPITHELIAL CELLS MANY /hpf (0-5); URINE WBC 20 - 25 /hpf (0-6)
[2016-10-15 15:55] LABS: ADD MANUAL DIFF? NO
[2016-10-15 15:59] LABS: VENOUS BLOOD GAS BASE EXCESS 0.2 mmol/L (0.0-2.0); VENOUS BLOOD PH 7.33 (7.32-7.43)
[2016-10-15 16:02] LABS: BASO # 0.01 K/mm3 (0.0-2.0); BASO % 0.1 % (0.0-3.0); EOS % 0.5 % (1.5-5.0); GRAN # 6.27 (1.4-6.5); GRAN % 72.3 % (50.0-68.0); HEMATOCRIT 32.8 % (36.0-48.0); LYMPH # 1.6 (1.2-3.4); LYMPH % 18.1 % (22.0-35.0); MEAN CELL VOLUME 86.3 fL (80.0-105.0); MEAN CORPUSCULAR HEMOGLOBIN 27.4 pg (25.0-35.0); MEAN CORPUSCULAR HGB CONC 31.7 g/dl (31.0-37.0); MEAN PLATELET VOLUME 10.3 fl (7.0-11.0); MONO # 0.8 (0.1-0.6); PLATELET COUNT 286 10^3/uL (120.0-450.0); RED CELL DISTRIBUTION WIDTH 13.9 % (11.5-14.5); WHITE BLOOD COUNT 8.7 10^3/ul (4.5-11.0)
[2016-10-15 17:00] LABS: ALKALINE PHOSPHATASE 132 U/L (38-133); ALT/SGPT 74 U/L (7-56); AST/SGOT 71 U/L (15-39); BILIRUBIN,TOTAL 1.4 mg/dL (0.2-1.3); BLOOD UREA NITROGEN 7 mg/dL (7-21); CALCIUM 9.3 mg/dL (8.4-10.5); CARBON DIOXIDE 24 mmol/L (21-33); CHLORIDE 103 mmol/L (98-107); GFR AFRICAN-AMERICAN > 60; GLUCOSE,RANDOM 84 mg/dL (70-110); POTASSIUM 4.2 mmol/L (3.6-5.0); SODIUM 139 mmol/L (132-148); TOTAL PROTEIN 8.5 g/dL (5.8-8.3)
[2016-10-15] MEDS ORDERED: Cefepime 1gm in NS 100ml 1 GM/100 ML BAG IVPB SCH ×2 (18:45→21:00)
[2016-10-15] MEDS: Sodium Chloride 0.9% 1,000 ML IV SCH (20:00)
[2016-10-15 20:10] LABS: INR 1.19 (0.93-1.08); PARTIAL THROMBOPLASTIN TIME 31.3 Seconds (23.7-30.8)
--- NOTE | 2016-10-15 21:10 | US ---
EXAM: US Abdomen Complete CLINICAL HISTORY: 26 years old, female; Pain; Abdominal pain; Additional info: ? ? Pyelonephritis/transaminitis TECHNIQUE: Real-time ultrasound of the abdomen (complete) with image documentation. COMPARISON: CT - ABD PELVIS IV CONTRAST ONLY 10/14/2016 4:07:40 PM FINDINGS: Liver: Unremarkable as visualized. No mass. No intrahepatic bile duct dilation. Gallbladder: Unremarkable as visualized. No gallstones. Common bile duct: No dilation, measured at 2 mm. Pancreas: Unremarkable as visualized. Kidneys: Right kidney measured at 12.9 cm, left kidney measured at 13.7 cm. No stones appreciated on ultrasound. No solid mass. No hydronephrosis. Spleen: No splenomegaly. Maximal dimension of 11.7 cm. Splenule. Aorta/IVC: Unremarkable as visualized. IMPRESSION: No acute sonographic abnormality. Correlate clinically. Followup as warranted.
[2016-10-15] MEDS ORDERED: Pneumococcal 23-Valent Vaccine IM ONE (21:35)
[2016-10-15 21:39] LABS: FREE T4 1.14 ng/dL (0.78-2.19); T4 8.2 ug/dL (5.5-11.0)
[2016-10-15 21:50] LABS: IRON 10 ug/dL (45-180)
[2016-10-15 21:52] LABS: THYROID STIMULATING HORMONE 4.35 mIU/mL (0.46-4.68)
[2016-10-15] MEDS: Cefepime 1gm in NS 100ml 1 GM/100 ML BAG IVPB SCH (23:00)
[2016-10-16] MEDS: HYDROmorphone 0.5 mg/0.5 ml ISec IVP PRN (04:47)
[2016-10-16] MEDS: Sodium Chloride 0.9% 1,000 ML IV SCH ×2 (04:47→16:21)
[2016-10-16] MEDS: Pantoprazole 20 mg EC Tab PO SCH ×2 (06:12→16:23)
[2016-10-16 08:02] LABS: ADD MANUAL DIFF? NO
[2016-10-16 08:06] LABS: BASO # 0.01 K/mm3 (0.0-2.0); BASO % 0.2 % (0.0-3.0); EOS % 0.3 % (1.5-5.0); GRAN # 5.27 (1.4-6.5); GRAN % 87.2 % (50.0-68.0); HEMATOCRIT 29.5 % (36.0-48.0); LYMPH # 0.6 (1.2-3.4); LYMPH % 10.1 % (22.0-35.0); MEAN CELL VOLUME 85.5 fL (80.0-105.0); MEAN CORPUSCULAR HEMOGLOBIN 26.7 pg (25.0-35.0); MEAN CORPUSCULAR HGB CONC 31.2 g/dl (31.0-37.0); MEAN PLATELET VOLUME 10.9 fl (7.0-11.0); MONO # 0.1 (0.1-0.6); MONO % 2.2 % (1.0-6.0); PLATELET COUNT 252 10^3/uL (120.0-450.0)
[2016-10-16 08:24] LABS: ALKALINE PHOSPHATASE 127 U/L (38-133); ALT/SGPT 66 U/L (7-56); AST/SGOT 36 U/L (15-39); BILIRUBIN,DIRECT 0.4 mg/dL (0.0-0.4); BILIRUBIN,TOTAL 1.2 mg/dL (0.2-1.3); BLOOD UREA NITROGEN 5 mg/dL (7-21); CALCIUM 8.9 mg/dL (8.4-10.5); CARBON DIOXIDE 22 mmol/L (21-33); CHLORIDE 106 mmol/L (98-107); GFR AFRICAN-AMERICAN > 60; GLUCOSE,RANDOM 86 mg/dL (70-110); MAGNESIUM 1.6 mg/dL (1.7-2.2); POTASSIUM 3.2 mmol/L (3.6-5.0); SODIUM 139 mmol/L (132-148); TOTAL PROTEIN 7.2 g/dL (5.8-8.3)
[2016-10-16] MEDS: Potassium Chloride 20 mEq ER Tab PO SCH ×2 (09:07→10:00)
[2016-10-16] MEDS: Cefepime 1gm in NS 100ml 1 GM/100 ML BAG IVPB SCH ×2 (09:08→22:02)
[2016-10-16] MEDS: Magnesium Sulfate 2 GM in Sodium Chloride 0.9% 100 ML IVPB SCH ×2 (09:57→11:13)
--- NOTE | 2016-10-16 12:09 | CP.PCM.PN ---
Subjective - Date & Time of Evaluation Date of Evaluation: 10/16/16 Time of Evaluation: 12:05 - Subjective Subjective: called by nurse pt is c/o cp.pt is admitted for pyelonephritis ,no fever chills.no cough ,no sob. Objective - Vital Signs/Intake and Output Vital Signs (last 24 hours): Temp Pulse Resp BP Pulse Ox 100 F H 105 H 19 112/60 96 10/16/16 07:47 10/16/16 07:47 10/16/16 07:47 10/16/16 07:47 10/16/16 07:47 Intake and Output: 10/16/16 10/16/16 06:59 18:59 Intake Total 300 Balance 300 - Medications Medications: Current Medications Acetaminophen (Tylenol 325mg Tab) 650 mg PO Q6H PRN PRN Reason: TEMP>=99.5F/MILD PAIN/HEADACHE Last Admin: 10/16/16 00:59 Dose: 650 mg Hydromorphone HCl (Dilaudid) 0.5 mg IVP Q4H PRN PRN Reason: Pain, moderate (4-7) Last Admin: 10/16/16 04:47 Dose: 0.5 mg Cefepime HCl (Maxipime 1gm) 1 gm in 100 mls @ 100 mls/hr IVPB Q12 ASHLEY PRN Reason: Protocol Last Admin: 10/16/16 09:08 Dose: 100 mls/hr Sodium Chloride (Sodium Chloride 0.9%) 1,000 mls @ 125 mls/hr IV .Q8H ASHLEY Stop: 10/19/16 03:59 Last Admin: 10/16/16 04:47 Dose: 125 mls/hr Iron Sucrose 200 mg/ Sodium (Chloride) 110 mls @ 110 mls/hr IVPB DAILY ASHLEY Stop: 10/17/16 10:59 Last Admin: 10/16/16 10:03 Dose: 110 mls/hr Magnesium Sulfate 2 gm/ Sodium (Chloride) 104 mls @ 102 mls/hr IVPB Q3H ASHLEY Stop: 10/16/16 13:02 Last Admin: 10/16/16 11:13 Dose: 102 mls/hr Ondansetron HCl (Zofran Inj) 4 mg IVP Q4H PRN PRN Reason: Nausea/Vomiting Pantoprazole Sodium (Protonix Ec Tab) 20 mg PO 0600,1600 ASHLEY Last Admin: 10/16/16 06:12 Dose: 20 mg - Labs Labs: 10/16/16 08:01 10/16/16 07:59 PT 12.9 Seconds (9.9-11.8) H 10/15/16 19:29 INR 1.19 (0.93-1.08) H 10/15/16 19:29 APTT 31.3 Seconds (23.7-30.8) H 10/15/16 19:29 - Constitutional Appears: No Acute Distress - Head Exam Head Exam: NORMOCEPHALIC - Eye Exam Eye Exam: Normal appearance Pupil Exam: PERRL - ENT Exam ENT Exam: Mucous Membranes Moist - Neck Exam Neck Exam: Full ROM - Respiratory Exam Respiratory Exam: Chest Wall Tenderness, NORMAL BREATHING PATTERN - Cardiovascular Exam Cardiovascular Exam: RRR, +S1, +S2 - GI/Abdominal Exam GI & Abdominal Exam: Normal Bowel Sounds - Extremities Exam Extremities Exam: Full ROM - Neurological Exam Neurological Exam: Alert, CN II-XII Intact, Oriented x3 - Skin Skin Exam: Dry, Normal Color, Warm Assessment and Plan - Assessment and Plan (Free Text) Assessment: chest wall tenderness. Plan: pt was given tylenol pt impraved.
[2016-10-16 12:11] LABS: FOLATE 6.8 ng/mL
--- NOTE | 2016-10-16 15:04 | CP.PCM.CON ---
History of Present Illness - History of Present Illness History of Present Illness: 26 year old female with past medical history migraine headaches was recently seen in [facility] (2 days ago) because of headache and left flank pain. She underwent lumbar puncture and results ruled out meningitis or encephalitis. Urine cx were done then which showed E. coli. The patient was discharged then on Cefuroxime but she continues to have the flank pain, as well as fevers and headaches although her headaches have improved. She has occasional nausea but no vomiting, does not like bright lights, no neck stiffness, no diarrhea, no abdominal pain, no chest pain, no SOB, no cough or colds. Infectious diseases consult is requested to further evaluate and manage. Review of Systems - Review of Systems All systems: reviewed and no additional remarkable complaints except (as per HPI ) Past Patient History - Infectious Disease Hx of Infectious Diseases: None - Tetanus Immunizations Tetanus Immunization: Unknown - Past Social History Smoking Status: Never Smoked - MUSCULOSKELETAL/RHEUMATOLOGICAL Hx Falls: No - PSYCHIATRIC Hx Substance Use: No - SURGICAL HISTORY Hx Surgeries: Yes (c section) Hx Appendectomy: Yes Meds Allergies/Adverse Reactions: Allergies Allergy/AdvReac Type Severity Reaction Status Date / Time No Known Allergies Allergy Verified 10/14/16 14:17 - Medications Medications: Current Medications Acetaminophen (Tylenol 325mg Tab) 650 mg PO Q6H PRN PRN Reason: TEMP>=99.5F/MILD PAIN/HEADACHE Last Admin: 10/16/16 00:59 Dose: 650 mg Hydromorphone HCl (Dilaudid) 0.5 mg IVP Q4H PRN PRN Reason: Pain, moderate (4-7) Last Admin: 10/16/16 04:47 Dose: 0.5 mg Cefepime HCl (Maxipime 1gm) 1 gm in 100 mls @ 100 mls/hr IVPB Q12 ASHLEY PRN Reason: Protocol Last Admin: 10/15/16 23:00 Dose: 100 mls/hr Sodium Chloride (Sodium Chloride 0.9%) 1,000 mls @ 125 mls/hr IV .Q8H ASHLEY Stop: 10/19/16 03:59 Last Admin: 10/16/16 04:47 Dose: 125 mls/hr Iron Sucrose 200 mg/ Sodium (Chloride) 110 mls @ 110 mls/hr IVPB DAILY ASHLEY Stop: 10/17/16 10:59 Last Admin: 10/16/16 00:58 Dose: 110 mls/hr Ondansetron HCl (Zofran Inj) 4 mg IVP Q4H PRN PRN Reason: Nausea/Vomiting Pantoprazole Sodium (Protonix Ec Tab) 20 mg PO 0600,1600 ASHLEY Last Admin: 10/16/16 06:12 Dose: 20 mg Physical Exam - Constitutional Appears: Non-toxic, No Acute Distress - Head Exam Head Exam: NORMAL INSPECTION - ENT Exam ENT Exam: Mucous Membranes Moist - Neck Exam Neck exam: Negative for: Lymphadenopathy, Meningismus - Respiratory Exam Respiratory Exam: Decreased Breath Sounds - Cardiovascular Exam Cardiovascular Exam: +S1, +S2 - GI/Abdominal Exam GI & Abdominal Exam: Soft. absent: Tenderness - Back Exam Back exam: CVA tenderness (L) Results - Vital Signs Recent Vital Signs: Last Vital Signs Temp 98.7 F 10/15/16 21:26 Pulse 82 10/15/16 21:26 Resp 18 10/15/16 21:26 BP 118/61 10/15/16 21:26 Pulse Ox 100 10/15/16 20:00 - Labs Result Diagrams: 10/16/16 08:01 10/16/16 07:59 Labs: Laboratory Results - last 24 hr 10/15/16 10/15/16 10/15/16 19:00 19:29 19:30 ESR 70 H PT 12.9 H INR 1.19 H APTT 31.3 H Iron TIBC % Saturation Free T4 1.14 Thyroxine (T4) 8.2 TSH 3rd Generation 4.35 10/15/16 19:30 ESR PT INR APTT Iron 10 L TIBC 340 % Saturation 3 L Free T4 Thyroxine (T4) TSH 3rd Generation Assessment & Plan - Assessment and Plan (Free Text) Plan: Assessment Left sided pyelonephritis Migraine headaches Plan Started patient on Cefepime pending blood and urine cx; reviewed CT scan of the abdomen and pelvis from 2 days ago which shows the left pyelonephritis will monitor clinically and trend fever curve
--- NOTE | 2016-10-16 15:40 | CARD ---
APPROVED REPORT EKG Measurement Heart [id number] <Conclusion> Normal sinus rhythm Normal ECG
--- NOTE | 2016-10-16 17:04 | PN ---
DATE: 10/16/2016 The patient is seen in room 368, bed 1. The patient's overnight nurse's notes were reviewed. The pa parag had complained of muscular pain on the rib cage area. The patient was given Tylenol. The laxmi ent has complained of fever of 100 degrees Fahrenheit this morning. The patient was seen lying in th e bed. PHYSICAL EXAMINATION: VITAL SIGNS: T-max 100 degrees Fahrenheit. Heart rate 83, 98, 82 and 105. Blood pressure ranging f rom 108/74, 118/61 and 112/68. Respiration 18 to 20 and O2 sat 96% to 100%. HEAD: Normocephalic and atraumatic. HEENT: Shows pinkish, pale conjunctivae. Dry oral mucosa. NECK: No neck rigidity. CHEST: Symmetrical. LUNGS: Shows no rales, crackles or wheezing. Occasional rhonchi upper lung bhatti. CARDIOVASCULAR: Shows S1, S2, regular rhythm. ABDOMEN: Soft, positive bilateral periumbilical tenderness, left more than the right. Positive bila teral costovertebral angle tenderness, left more than the right. GENITALIA: Female. RECTAL: Deferred. EXTREMITIES: Shows no pitting edema, no calf tenderness and no Homans' sign. NEUROLOGIC: The patient is alert, awake, oriented x 3 and is able to move upper and lower extremity without assistance. Gait examination is independent. No neurological deficit noted. Gait examination is independent. Neuro examination without any gross deficit. VASCULAR: Palpable pulses. Plantars are downwards. PSYCHIATRIC: Negative for anxiety, depression, suicidal or homicidal ideation. DIAGNOSTIC STUDIES: From 10/16, WBC count 6.0, hemoglobin and hematocrit have dropped to 9.8 and 29.5, platelet 253 with granulocytes 87% segs. ESR is 70 from yesterday. PT/PTT slightly elevated. Sodium 139, potassium 3.2, chloride 106, CO2 of 22, anion gap 14, BUN 5, creatinine 0.6, GFR greater than 6 0, glucose 86, calcium 8.9, magnesium 1.7, iron 10, TIBC , saturation of 3 and ferritin 43. AST is normal, ALT 66 and C-reactive protein greater than 15. Procalcitonin level is less than 0.5. B1 2 380 and folate 6.8. Thyroid panel is negative. Urine cultures from 10/14 and 10/13 are growing Es cherichia coli. Blood cultures negative at present. Ultrasound of the abdomen was done, which shows no acute ultrasonic abnormalities are noted. EKG don e and shows sinus rhythm, no ST elevation or depression. IMPRESSION AND PLAN: 1. Escherichia coli left-sided pyelonephritis, cystitis and urinary tract infection. 2. History of migraine headache. 3. Status post spinal tap done in the Emergency Room on 10/14 for headache. 4. Low grade fever. 5. Transient tachycardia. 6. Hypotension and hypovolemia. 7. Normocytic anemia with history of menorrhagia. 8. Granulocytosis. 9. Elevated erythrocyte sedimentation rate of 70. 10. Mild coagulopathy. 11. Hypokalemia. 12. Hypomagnesemia. 13. Iron deficiency normocytic anemia. 14. Elevated C-reactive protein. 15. Mild transaminitis. 16. Escherichia coli urinary tract infection, cystitis and pyelonephritis with proteinuria, hematuri a, pyuria, bacteriuria and funguria. 17. History of tampon use. 18. Left pyelonephritis with poorly defined ____ edema and decreased enhancement of the upper pole o f the left kidney. 19. Left proximal ureter mural enhancement with urinary tract infection. 20. Bladder wall mural thickening and cystitis. 21. Multiple bilateral ovarian cysts. PLAN: At this time, the patient is to be continued on IV fluid hydration. The patient has been orde red serial labs, potassium and magnesium with supplementation ordered. The patient will be ordered H IV, RPR and hepatitis serologies today. The patient's repeat urine and blood culture results are pen ding. Infectious disease evaluation is pending. The patient's procalcitonin level was done which is negative. CURRENT MEDICATIONS: The patient received Diflucan 150 yesterday. The patient is on Dilaudid 0.5 mg IV q. 4 p.r.n. The patient was started on Venofer 200 mg IV daily x 3 doses, Maxipime 1 gram IV q. 12, Protonix 20 mg twice a day and IV fluid at 125 an hour 0.9 normal saline. The patient is on Tyle nol 650 q. 6 p.r.n. and Zofran 4 mg IV q. 4 p.r.n. Regular diet, out of bed, NILAM stockings and SCDs have been ordered. The patient was seen by infectio us disease. Their recommendation is noted by Dr. Valente Hicks. At present, the patient's further m anagement will be dependent upon the patient's clinical condition, hemodynamic status and as per laxmi ent's response to therapeutic intervention, as per patient's diagnostic test results and recommendati on by all physicians involved in the care of the patient. Dictated and electronically signed. Claude Ballesteros MD cc: [id number] TT: 10/16/2016 17:03:31 Confirmation # [id number] Dictation # [id number]
--- NOTE | 2016-10-16 19:43 | HP ---
HISTORY OF PRESENT ILLNESS: The patient is a 26-year-old female who presented to the Emergency Room complaining of persistent recurrent right-sided and bilateral flank pain, complaining of fever. The patient was seen in the Emergency Room on 10/14, was diagnosed with pyelonephritis and the patient wa s discharged home, but the patient's symptoms did not improve and the patient ended up coming back to day again with the above symptoms. According to the ER physician's evaluation, the patient persisted to have back pain, bilateral flank pain, fever and chills for the last 3 days since 10/12. The patient denies any constipation. Denies any dysuria. Denies any hematuria. The urine culture from 10/13 was E. coli. The patient's CAT scan from 10/13 and 10/14 shows pyelonephritis and cystiti s. REVIEW OF SYSTEMS: The patient's 13-system review was done. Pertinent positives and negatives dicta charity above. CODE STATUS: Full code. LIVING WILL AND ADVANCED DIRECTIVE: None. ALLERGIES: None. HEIGHT: 5 feet 6 inches. WEIGHT: 160. BMI: 26. SOCIAL HISTORY: The patient denies substance abuse. Denies alcohol. Denies smoking. 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 HOME MEDICATIONS: Percocet 5/325 one tab b.i.d. p.r.n., ibuprofen, Motrin 600 and cefuroxime 500 twi ce a day. PAST MEDICAL HISTORY: Significant for a history of appendectomy, . The patient's past medi estelita history is significant for a history of heavy menses and menorrhagia, history of normocytic anemi a. The patient's past medical history is significant for transaminitis. Past medical history is sig nificant for appendectomy, . Past medical history also significant for a history of endomet rial problems, history of left ovarian cyst, history of prominent endometrium. PHYSICAL EXAMINATION: VITAL SIGNS: T-max 99.7. Heart rate 98, blood pressure is 108/74. Respirations 18-20. O2 sat is 1 00%. GENERAL: The patient is seen lying in the stretcher. HEAD: Normocephalic, atraumatic. HEENT: Shows pinkish, pale conjunctivae, anicteric sclerae. No oropharyngeal lesion. NECK: No neck rigidity. CHEST: Kyphosis. LUNGS: Shows no rales, crackles, or wheezing. CARDIOVASCULAR: Shows S1, S2. ABDOMEN: Soft, positive bowel sounds. Positive bilateral periumbilical tenderness. Positive bilate ral flank tenderness, left more than the right, and bilateral periumbilical tenderness, left more jose alejandro n the right. GENITALIA: Female. RECTAL: Deferred. EXTREMITIES: Shows no pitting edema, no calf tenderness, no Homans' sign. No clubbing, no cyanosis. VASCULAR: Palpable pulses. Plantars are downward. DTRs are 2+. NEUROLOGIC: The patient is alert, awake, oriented x 3. Cranial nerves II-XII intact. Gait examinat ion is independent. VASCULAR: Palpable pulses. Plantars are downward. DTRs are 2+. PSYCHIATRIC: Negative. DIAGNOSTICS: From October 15: WBC 8.7, hemoglobin and hematocrit 10.4 and 32.8, platelet 286, granul ocytes 72% segs. ESR was 70. PT, PTT 12.9 and 31.3. Sodium 139, potassium 4.2, chloride 103, CO2 o f 24, anion gap 16, BUN 7, creatinine 0.6, GFR greater than 60, glucose 84, calcium 9.3, total biliru bin 1.4, AST 71, ALT 74, total protein 8.5, albumin is normal. Procalcitonin less than 0.05. Urine pH 6.0, specific gravity of 1.025, protein 30, large blood, moderate leukocyte esterase, moderate wilfredo teria, yeast noted. The patient's lab data from 10/13 and 10/14 were reviewed, which shows WBC of 11.9, hemoglobin and he matocrit ranging between 10.8 and 33.9, and 11.1 and 34.1 granulocytes, 84% segs. The patient's chem istry: An LFTs shows bilirubin 1.5. Urinalysis on October 13, 1+ protein, positive nitrite, positive leukocyte esterase, WBC 174. The patient had chlamydia and gonorrhea tested which was negative. Th e patient's urine culture from 10/13 and 10/14 is growing Escherichia coli, which is negative for ESB L and resistant to Bactrim. The patient had a chest x-ray done in the Emergency Room, which was nega tive for any active disease. CAT scan of the abdomen and abdominal ultrasound was noted. Abdominal ultrasound and CAT scan of the abdomen was noted. EKG was reviewed, which is normal EKG. The patient was seen by the physician construction assistant. The patient was treated in the Emergency Room with IV fluid, IV hydration, IV antibiotic and pain medications. Toradol was given, Rocephin was given. The patient was given a dose of Diflucan 150 and Reglan was given and the patient was advised to be a dmitted. IMPRESSION AND PLAN: 1. Questionable bilateral pyelonephritis. 2. Escherichia coli pyelonephritis, cystitis and urinary tract infection with hematuria, pyuria, wilfredo teriuria and funguria. 3. Left renal edema and decreased enhancement, suspicious for left pyelonephritis. 4. Escherichia coli left pyelonephritis. 5. Possible Escherichia coli cystitis with bladder wall mural thickening. 6. Multiple small bilateral ovarian cysts. 7. Leukocytosis with granulocytosis. 8. Normocytic anemia. 9. History of menorrhagia. 10. Elevated erythrocyte sedimentation rate of 70. 11. Mild coagulopathy. 12. Hypokalemia. 13. Transaminitis. 14. Escherichia coli urinary tract infection, left pyelonephritis and cystitis with proteinuria, hem aturia, pyuria, bacteriuria and funguria. 15. Escherichia coli urinary tract infection. 16. Normocytic anemia. 17. History of menorrhagia. 18. Possible iron deficiency anemia. 19. Hypokalemia. 20. Transaminitis. PLAN: At this time, the patient is to be continued on IV fluid, which the patient is getting in the Emergency Room. The patient has been ordered serial labs. The patient has been ordered iron studies . Blood and urine cultures have been repeated. Current consultation infectious disease. The patien t received Diflucan 150 mg. The patient is on Dilaudid 0.5 mg IV q.4 p.r.n., Cefepime 1 gram IV q.12. hours ordered, Protonix 20 mg daily ordered. The patient received Reglan in the Emergency Room 10 m g and Rocephin 1 gram IV was given. The patient was started on IV fluids 0.9 normal saline at 125 mL an hour. The patient received a bolus of 0.9 normal saline in the ER. The patient was given Torado l 30 mg IV. Tylenol was ordered. The patient is also started on Zofran 4 mg IV q.4 p.r.n., a regula r diet, out of bed. At present, the patient is awaiting admission. The patient's further management will be dependent upon the patient's clinical condition, hemodynamic status, and as per patient's re sponse to therapeutic intervention, as per patient's diagnostic test results and as per recommendatio n by all the physicians involved in the care of the patient. Dictated and electronically signed, not read. Claude Ballesteros MD cc: [id number] TT: 10/16/2016 19:42:28 dn 10/16/2016 20:37:18
[2016-10-17] MEDS: Sodium Chloride 0.9% 1,000 ML IV SCH ×4 (03:42→20:00)
[2016-10-17] MEDS: Pantoprazole 20 mg EC Tab PO SCH ×2 (05:39→15:57)
[2016-10-17 07:57] LABS: ADD MANUAL DIFF? NO
[2016-10-17 08:33] LABS: BASO # 0.02 K/mm3 (0.0-2.0); BASO % 0.4 % (0.0-3.0); EOS # 0.2 (0.0-0.7); EOS % 3.4 % (1.5-5.0); GRAN # 3.22 (1.4-6.5); GRAN % 65.2 % (50.0-68.0); LYMPH # 1.1 (1.2-3.4); LYMPH % 22.1 % (22.0-35.0); MEAN CELL VOLUME 85.8 fL (80.0-105.0); MEAN CORPUSCULAR HEMOGLOBIN 26.9 pg (25.0-35.0); MEAN CORPUSCULAR HGB CONC 31.4 g/dl (31.0-37.0); MEAN PLATELET VOLUME 10.8 fl (7.0-11.0); MONO # 0.4 (0.1-0.6); MONO % 8.9 % (1.0-6.0); PLATELET COUNT 274 10^3/uL (120.0-450.0); RED CELL DISTRIBUTION WIDTH 14.4 % (11.5-14.5); WHITE BLOOD COUNT 4.9 10^3/ul (4.5-11.0)
[2016-10-17 08:52] LABS: ALB/GLOB RATIO 0.9 (1.1-1.8); ALKALINE PHOSPHATASE 145 U/L (38-133); ALT/SGPT 87 U/L (7-56); AST/SGOT 62 U/L (15-39); BILIRUBIN,DIRECT 0.3 mg/dL (0.0-0.4); BILIRUBIN,TOTAL 0.5 mg/dL (0.2-1.3); BLOOD UREA NITROGEN 4 mg/dL (7-21); CALCIUM 8.7 mg/dL (8.4-10.5); CARBON DIOXIDE 22 mmol/L (21-33); CHLORIDE 108 mmol/L (98-107); GFR AFRICAN-AMERICAN > 60; GLUCOSE,RANDOM 79 mg/dL (70-110); MAGNESIUM 1.9 mg/dL (1.7-2.2); POTASSIUM 3.6 mmol/L (3.6-5.0); SODIUM 139 mmol/L (132-148)
[2016-10-17] MEDS ORDERED: Potassium Chloride 20 mEq ER Tab PO ONE (09:15)
[2016-10-17] MEDS ORDERED: Magnesium Sulfate 2 GM in Sodium Chloride 0.9% 100 ML IVPB ONE (09:15)
[2016-10-17] MEDS: Cefepime 1gm in NS 100ml 1 GM/100 ML BAG IVPB SCH ×2 (09:35→22:00)
[2016-10-17] MEDS: HYDROmorphone 0.5 mg/0.5 ml ISec IVP PRN ×2 (11:01→17:06)
[2016-10-17] MEDS: Fluconazole IV 200mg/100 ml NS 100 MG in Premixed IV 1 EA IVPB SCH (15:57)
--- NOTE | 2016-10-17 16:45 | CT ---
PROCEDURE: CT HEAD WITHOUT CONTRAST. HISTORY: headache COMPARISON: None available. TECHNIQUE: Axial computed tomography images were obtained through the head/brain without intravenous contrast. Radiation dose: Total exam DLP = 774.23 mGy-cm. This CT exam was performed using one or more of the following dose reduction techniques: Automated exposure control, adjustment of the mA and/or kV according to patient size, and/or use of iterative reconstruction technique. FINDINGS: HEMORRHAGE: No intracranial hemorrhage. BRAIN: No mass effect or edema. No atrophy or chronic microvascular ischemic changes.Please note that MRI with diffusion imaging is more sensitive in the detection of acute ischemic event. VENTRICLES: No hydrocephalus. CALVARIUM: Unremarkable. PARANASAL SINUSES: Unremarkable as visualized. No significant inflammatory changes. MASTOID AIR CELLS: Unremarkable as visualized. No inflammatory changes. OTHER FINDINGS: None. IMPRESSION: No acute intracranial pathology identified.
--- NOTE | 2016-10-17 16:46 | PN ---
DATE: 10/17/2016 SUBJECTIVE: The patient is seen in room 368, bed 1. The patient is sitting up in the bed. Earlier this morning I was called by the patient's nurse because of complaints of headache. The patient was g iven Dilaudid and Tylenol. The patient now says the headache has resolved. The patient was also orde red a CT scan of the head which is delayed because of test. The patient had a sandy t done on October 15 which was noted to be in the patient care notes which was negative. The patient's p regnancy test was repeated which is negative. The patient still complains of bilateral flank pain, left more than the right. PHYSICAL EXAMINATION: VITAL SIGNS: T-max 100.2 down to 99.8, pulse, 62, 68 and 9 0. Blood pressure 108/74, 110/60, 118/70 . Respirations 18-20, O2 sat is mid to high 90s. HEENT: Normocephalic, atraumatic. Shows pinkish, pale pink mucosa. Anicteric sclera. Dry oral mucosa . NECK: No neck rigidity. No Kernig sign or Brudzinski sign. No neck rigidity. CHEST: Symmetrical. LUNGS: Shows no rales, crackles, or wheezing. CARDIOVASCULAR: S1, S2. Regular rhythm. ABDOMEN: Soft, positive bowel sounds, positive bilateral periumbilical tenderness, left more than ri ght. Positive bilateral costovertebral angle tenderness, left more than the right. GENITALIA: Female. RECTAL: Deferred. EXTREMITIES: Shows no pitting edema, No . No Homans sign. NEUROLOGIC: The patient is alert, awake, oriented times 3. Cranial nerves II-XII intact. GAIT: Not tested. MUSCULOSKELETAL: As per body mass index. DIAGNOSTICS: From today were reviewed. Hemoglobin, WBC count normal. Hemoglobin hematocrit is above 9 and hematocrit is around 29 to 30. Platelets are normal. Chemistries significant for potassium 3. 6, magnesium 1.8. The patient had slight elevation of AST and ALT. Urine culture is growing yeast, greater than 100,000. IMPRESSION AND PLAN: 1. Pyelonephritis, questionable bilateral pyelonephritis versus left-sided pyelonephritis. 2. Funguria. 3. Fever. 4. Headache. 5. Questionable migraine headache. 6. E. coli urinary tract infection. 7. Normocytic iron deficiency anemia. 8. History of menorrhagia. 9. History of section and appendectomy. 10. Elevated erythrocyte sedimentation rate of 70. PLAN: A repeat test is negative. The patient is awaiting a CT of the head. The patient i s currently being followed by infectious disease. The patient is to be continued on IV fluid, IV ant ibiotics and pain medication and all the medications as per the MAR of today which were reviewed. The patient was updated about her condition, diagnosis, test results. RECOMMENDATION: For further treatment and continuation of IV antibiotic and continuation of the victor m tment was explained and diagnostic therapeutic intervention was explained to the patient in layman's language. All questions and concerns answered. Claude Ballesteros MD cc: [id number] TT: 10/17/2016 16:46:37 Confirmation # [id number] Dictation # [id number] mn
[2016-10-18] MEDS: Sodium Chloride 0.9% 1,000 ML IV SCH ×3 (04:00→21:28)
[2016-10-18] MEDS: Pantoprazole 20 mg EC Tab PO SCH ×2 (06:28→17:00)
[2016-10-18] MEDS: HYDROmorphone 0.5 mg/0.5 ml ISec IVP PRN (06:30)
[2016-10-18 07:51] LABS: ADD MANUAL DIFF? NO
[2016-10-18 07:56] LABS: BASO # 0.03 K/mm3 (0.0-2.0); BASO % 0.7 % (0.0-3.0); EOS # 0.1 (0.0-0.7); GRAN # 2.52 (1.4-6.5); GRAN % 56.6 % (50.0-68.0); HEMATOCRIT 29.7 % (36.0-48.0); LYMPH # 1.3 (1.2-3.4); LYMPH % 28.8 % (22.0-35.0); MEAN CELL VOLUME 85.6 fL (80.0-105.0); MEAN CORPUSCULAR HEMOGLOBIN 26.8 pg (25.0-35.0); MEAN CORPUSCULAR HGB CONC 31.3 g/dl (31.0-37.0); MEAN PLATELET VOLUME 9.9 fl (7.0-11.0); MONO # 0.5 (0.1-0.6); MONO % 11.9 % (1.0-6.0); PLATELET COUNT 298 10^3/uL (120.0-450.0); RED CELL DISTRIBUTION WIDTH 14.5 % (11.5-14.5); WHITE BLOOD COUNT 4.5 10^3/ul (4.5-11.0)
[2016-10-18 08:31] LABS: ALKALINE PHOSPHATASE 135 U/L (38-133); ALT/SGPT 78 U/L (7-56); AST/SGOT 40 U/L (15-39); BILIRUBIN,DIRECT 0.2 mg/dL (0.0-0.4); BILIRUBIN,TOTAL 0.4 mg/dL (0.2-1.3); BLOOD UREA NITROGEN 6 mg/dL (7-21); CALCIUM 8.9 mg/dL (8.4-10.5); CARBON DIOXIDE 25 mmol/L (21-33); CHLORIDE 106 mmol/L (98-107); GFR AFRICAN-AMERICAN > 60; GLUCOSE,RANDOM 89 mg/dL (70-110); MAGNESIUM 1.9 mg/dL (1.7-2.2); POTASSIUM 3.8 mmol/L (3.6-5.0); SODIUM 139 mmol/L (132-148); TOTAL PROTEIN 6.9 g/dL (5.8-8.3)
[2016-10-18] MEDS: Fluconazole IV 200mg/100 ml NS 100 MG in Premixed IV 1 EA IVPB SCH (09:23)
[2016-10-18] MEDS: Cefepime 1gm in NS 100ml 1 GM/100 ML BAG IVPB SCH ×2 (09:23→21:28)
--- NOTE | 2016-10-18 11:56 | PN ---
DATE: 10/18/2016 The patient is seen in room 368, bed 1. The patient is lying in the bed. The door is closed. The p atient's headache has resolved. PHYSICAL EXAMINATION: VITAL SIGNS: T-max 98.6, pulse 80-81, blood pressure 115/67, 121/68, 108/68, respiration 19-20, O2 s at 100%. HEAD: Normocephalic, atraumatic. HEENT: Shows pinkish, pale conjunctivae, anicteric sclerae, no oropharyngeal lesion. NECK: No neck rigidity. CHEST: Symmetrical. LUNGS: Shows no rales, crackles, or wheezing. CARDIOVASCULAR: S1, S2, regular rhythm. ABDOMEN: Soft. Positive bowel sounds, mild left periumbilical tenderness, positive left CVA tendern ess, no right CVA tenderness noted. GENITALIA: Female. RECTAL: Deferred. EXTREMITIES: Shows no pitting edema, no calf tenderness, no Homans' sign. NEUROLOGIC: The patient is alert, awake, oriented x 3. Cranial nerves II-XII intact. GAIT: Independent. VASCULAR: Palpable pulses. Plantars are downward. DTRs are 2+. MUSCULOSKELETAL: Shows a body mass index of 26. DIAGNOSTICS: 10/18: WBC 4.5, hemoglobin/hematocrit 9.3 and 29.7, platelets 298. ESR is down to 61. Sodium 139, potassium 3.8, chloride 106, CO2 25, anion gap 12, BUN 6, creatinine 0.7, GFR greater t merrill 60, glucose 89, calcium 8.9, magnesium 1.9. LFTs shows AST is 40, ALT is 78, alk phos 135. Rest of the LFTs are normal. C-reactive protein is greater than 15. RPR and hepatitis A, B, C serologie s are negative. Urine cultures from 10/15: Yeast species. Urine culture from 10/14 and 10/13: E. c aurea. The patient had a CT of the head done, which was negative. IMPRESSION AND PLAN: 1. Left-sided pyelonephritis. 2. Migraine headache. 3. Escherichia coli, left-sided pyelonephritis, cystitis and urinary tract infection. 4. History of migraine headache. 5. Low-grade fever of 100.2. 6. Transient tachycardia. 7. Normocytic anemia. 8. Granulocytosis. 9. Elevated erythrocyte sedimentation rate. 10. Mildly elevated PT, PTT, questionable mild coagulopathy. 11. Iron deficiency normocytic anemia. 12. History of menorrhagia. 13. Transaminitis. 14. Elevated high sensitivity C-reactive protein of greater than 15 and elevated cardiac C-reactive protein of 144. 15. Hypokalemia. 16. Hypomagnesemia. 17. Proteinuria, hematuria, pyuria, bacteriuria and funguria. PLAN: The patient has been ordered repeat urine culture. The results are pending. The patient is a waiting further recommendation from infectious disease. CURRENT MEDICATIONS: 1. Diflucan 100 mg IV daily. 2. Dilaudid 0.5 mg IV q. 4 p.r.n. 3. The patient was given magnesium sulfate rider and potassium yesterday. 4. The patient is on Maxipime 1 gram IV q. 12. 5. Protonix 20 mg twice a day. 6. IV fluids 0.9 normal saline at 125 mL an hour. 7. Tylenol 650 q. 6 p.r.n. 8. Zofran 4 mg IV q. 4 p.r.n. The patient has been ordered out of bed, NILAM stockings, SCDs, ambulation. The patient will be on low dose potassium and magnesium supplementation as patient's potassium and magnesium are low normal. The patient has been updated about her condition, diagnosis and treatment plan, and further managemen t explained to the patient at length, which she acknowledged and understands. The patient has been a dvised out of bed to chair. The patient has been advised ad gabriel. The patient updated about her diag nosis, test results, diagnostic and therapeutic interventional, all discussed and explained to the kalin tuttle in layman's language. All questions and concerns answered. Claude Ballesteros MD cc: [id number] TT: 10/18/2016 11:55:53 Confirmation # [id number] Dictation # [id number]
[2016-10-18] MEDS: Potassium Chloride 10 mEq ER Tab PO SCH (12:11)
[2016-10-18] MEDS: Magnesium Oxide 400 mg Tab UD PO SCH (12:11)
--- NOTE | 2016-10-18 19:10 | CP.PCM.PN ---
Subjective - Date & Time of Evaluation Date of Evaluation: 10/18/16 Time of Evaluation: 11:45 - Subjective Subjective: Feeling better, headache is getting better, no fevers overnight. No nausea or vomiting. Objective - Vital Signs/Intake and Output Vital Signs (last 24 hours): Temp Pulse Resp BP Pulse Ox 98.3 F 80 19 108/68 100 10/17/16 07:29 10/17/16 07:29 10/17/16 07:29 10/17/16 07:29 10/17/16 07:29 Intake and Output: 10/17/16 10/17/16 06:59 18:59 Intake Total 3050 Balance 3050 - Medications Medications: Current Medications Acetaminophen (Tylenol 325mg Tab) 650 mg PO Q6H PRN PRN Reason: TEMP>=99.5F/MILD PAIN/HEADACHE Last Admin: 10/17/16 06:53 Dose: 650 mg Hydromorphone HCl (Dilaudid) 0.5 mg IVP Q4H PRN PRN Reason: Pain, moderate (4-7) Last Admin: 10/16/16 04:47 Dose: 0.5 mg Cefepime HCl (Maxipime 1gm) 1 gm in 100 mls @ 100 mls/hr IVPB Q12 ASHLEY PRN Reason: Protocol Last Admin: 10/17/16 09:35 Dose: 100 mls/hr Sodium Chloride (Sodium Chloride 0.9%) 1,000 mls @ 125 mls/hr IV .Q8H ASHLEY Stop: 10/19/16 03:59 Last Admin: 10/17/16 04:00 Dose: 125 mls/hr Iron Sucrose 200 mg/ Sodium (Chloride) 110 mls @ 110 mls/hr IVPB DAILY ASHLEY Stop: 10/17/16 10:59 Last Admin: 10/17/16 09:38 Dose: 110 mls/hr Magnesium Sulfate 2 gm/ Sodium (Chloride) 104 mls @ 102 mls/hr IVPB ONCE ONE Stop: 10/17/16 10:16 Last Admin: 10/17/16 09:36 Dose: 102 mls/hr Ondansetron HCl (Zofran Inj) 4 mg IVP Q4H PRN PRN Reason: Nausea/Vomiting Pantoprazole Sodium (Protonix Ec Tab) 20 mg PO 0600,1600 [facility] Last Admin: 10/17/16 05:39 Dose: 20 mg - Labs Labs: 10/17/16 07:54 10/17/16 07:54 PT 12.9 Seconds (9.9-11.8) H 10/15/16 19:29 INR 1.19 (0.93-1.08) H 10/15/16 19:29 APTT 31.3 Seconds (23.7-30.8) H 10/15/16 19:29 - Constitutional Appears: Non-toxic, No Acute Distress - Head Exam Head Exam: NORMAL INSPECTION - ENT Exam ENT Exam: Mucous Membranes Moist - Neck Exam Neck Exam: absent: Lymphadenopathy, Meningismus - Respiratory Exam Respiratory Exam: Decreased Breath Sounds - Cardiovascular Exam Cardiovascular Exam: +S1, +S2 - GI/Abdominal Exam GI & Abdominal Exam: Soft. absent: Tenderness Assessment and Plan - Assessment and Plan (Free Text) Plan: Assessment Left sided pyelonephritis, slowly improving Migraine headaches Plan continue Cefepime pending final blood and urine cx results (previously grew E. coli); reviewed CT scan of the abdomen and pelvis from 2 days ago which shows the left pyelonephritis will monitor clinically and trend fever curve
[2016-10-19] MEDS: Pantoprazole 20 mg EC Tab PO SCH ×2 (05:44→16:55)
[2016-10-19 07:45] VITALS: O2SAT 100
[2016-10-19 07:57] LABS: CARDIO CRP(R) 93.1 mg/L
[2016-10-19] MEDS: Potassium Chloride 10 mEq ER Tab PO SCH (09:36)
[2016-10-19] MEDS: HYDROmorphone 0.5 mg/0.5 ml ISec IVP PRN ×2 (09:36→16:55)
[2016-10-19] MEDS: Magnesium Oxide 400 mg Tab UD PO SCH (09:36)
[2016-10-19] MEDS: cefTRIAXone 2 GM IN NS 2 GM/100 ML BAG IVPB SCH (09:37)
--- NOTE | 2016-10-19 10:41 | PN ---
DATE: 10/19/2016 The patient is seen in room 368, bed 1. The patient is sitting up in the bed today. The patient is not lying in the bed. The patient stated that she is feeling significantly better since the day of a dmission. The patient denies any fever. Denies any headache. Denies any nausea, denies any diarrhe a. Denies any constipation. PHYSICAL EXAMINATION: VITAL SIGNS: T-max 98.7, heart rate 64, blood pressure 106/67 108/59, respirations 18, O2 sat 99-100 %. HEAD: Normocephalic, atraumatic. HEENT: Shows pinkish conjunctivae. Anicteric sclerae. Dry oral mucosa. NECK: No neck rigidity. CHEST: Symmetrical. LUNGS: Show no rales, crackles, or wheezing. CARDIOVASCULAR: Shows S1, S2, regular rhythm. ABDOMEN: Soft. Decreasing periumbilical tenderness, decreasing costovertebral angle tenderness on t he left more than the right. GENITALIA: Female. RECTAL: Deferred. EXTREMITIES: Show no pitting edema, no calf tenderness, no Homans' sign. NEUROLOGIC: The patient is alert, awake, oriented x 3. Cranial nerves II-XII intact. Gait examinat ion is independent. VASCULAR: Palpable pulses. MUSCULOSKELETAL: Shows a body mass index of 26. PSYCHIATRIC: Negative for anxiety, depression. Negative for auditory or visual hallucinations Negat deonte for suicidal or homicidal ideation. DIAGNOSTICS: From 10/19 none. Repeat urine cultures pending. IMPRESSION: 1. Escherichia coli left pyelonephritis, cystitis, urinary tract infection. 2. Funguria. 3. Fever. 4. Tachycardia. 5. Hypovolemia and hypotension. 6. Normocytic iron deficiency anemia with granulocytosis. 7. Elevated erythrocyte sedimentation rate. 8. Questionable mild coagulopathy with elevated PT and INR. 9. Hypokalemia. 10. Hypomagnesemia. 11. Transaminitis. 12. Elevated high sensitivity C-reactive protein and elevated cardiac C-reactive protein. 13. Iron deficiency normocytic anemia. 14. Transaminitis. 15. Hypomagnesemia. 16. Escherichia coli urinary tract infection with proteinuria, hematuria, pyuria, bacteriuria and fu nguria. 17. Migraine headache. 18. Hematuria, proteinuria, pyuria, funguria. 19. Normocytic iron deficiency anemia. 20. Hypokalemia, hypomagnesemia. PLAN: At this time, the patient has been ordered repeat labs for the morning. The patient's HIV res ults are pending. Repeat urine culture results are pending, which are received. CONSULTATION: Infectious disease. CURRENT MEDICATIONS: 1. Diflucan 100 mg IV daily. 2. Dilaudid 0.5 mg IV q. 4 hours p.r.n. for pain. 3. K-Dur 10 mEq daily. 4. Magnesium oxide 400 mg daily. 5. Protonix 20 mg twice a day. 6. Rocephin 2 grams IV daily. 7. Tylenol 650 q. 6 p.r.n. 8. Zofran 4 mg IV q. 4 p.r.n. 9. Regular diet, out of bed, NILAM stockings, SCDs. The patient updated about her condition, diagnosis, test results, treatment plan, recommendation in d etail. Discussed with the patient in layman's language. All questions and concerns answered. Dictated and electronically signed, not read. Claude Ballesteros MD cc: [id number] TT: 10/19/2016 10:40:55 Confirmation # [id number] Dictation # [id number] tn
[2016-10-19] MEDS: Fluconazole IV 200mg/100 ml NS 100 MG in Premixed IV 1 EA IVPB SCH (11:20)
[2016-10-19 17:36] VITALS: RESP 20
--- NOTE | 2016-10-19 17:55 | CP.PCM.PN ---
Subjective - Date & Time of Evaluation Date of Evaluation: 10/19/16 Time of Evaluation: 17:51 - Subjective Subjective: Patient has very poor veins,needs iv access Objective - Vital Signs/Intake and Output Vital Signs (last 24 hours): Temp Pulse Resp BP Pulse Ox 98.5 F 61 20 112/94 H 100 10/19/16 16:00 10/19/16 16:00 10/19/16 16:00 10/19/16 16:00 10/19/16 16:00 Intake and Output: 10/19/16 10/19/16 06:59 18:59 Intake Total 720 Balance 720 - Medications Medications: Current Medications Acetaminophen (Tylenol 325mg Tab) 650 mg PO Q6H PRN PRN Reason: TEMP>=99.5F/MILD PAIN/HEADACHE Last Admin: 10/19/16 05:42 Dose: 650 mg Hydromorphone HCl (Dilaudid) 0.5 mg IVP Q4H PRN PRN Reason: Pain, moderate (4-7) Last Admin: 10/19/16 16:55 Dose: 0.5 mg Fluconazole 100 mg/ (Miscellaneous) 50 mls @ 100 mls/hr IVPB DAILY ASHLEY PRN Reason: Protocol Last Admin: 10/19/16 11:20 Dose: 100 mls/hr Ceftriaxone Sodium (Rocephin 2 Gm Ivpb) 2 gm in 100 mls @ 100 mls/hr IVPB DAILY ASHLEY PRN Reason: Protocol Last Admin: 10/19/16 09:37 Dose: 100 mls/hr Magnesium Oxide (Mag-Ox) 400 mg PO DAILY [facility] Last Admin: 10/19/16 09:36 Dose: 400 mg Ondansetron HCl (Zofran Inj) 4 mg IVP Q4H PRN PRN Reason: Nausea/Vomiting Pantoprazole Sodium (Protonix Ec Tab) 20 mg PO 0600,1600 [facility] Last Admin: 10/19/16 16:55 Dose: 20 mg Potassium Chloride (Klor-Con 10) 10 meq PO BRK [facility] Last Admin: 10/19/16 09:36 Dose: 10 meq - Labs Labs: 10/18/16 07:00 10/18/16 07:00 PT 12.9 Seconds (9.9-11.8) H 10/15/16 19:29 INR 1.19 (0.93-1.08) H 10/15/16 19:29 APTT 31.3 Seconds (23.7-30.8) H 10/15/16 19:29 - Constitutional Appears: No Acute Distress Assessment and Plan - Assessment and Plan (Free Text) Assessment: Poor venous access Plan: Hep lock inserted in the left ante cubital region. #22 angiocath used.
--- NOTE | 2016-10-19 17:57 | CP.PCM.PN ---
Subjective - Date & Time of Evaluation Date of Evaluation: 10/19/16 Time of Evaluation: 10:10 - Subjective Subjective: Comfortable but still having occasional headaches (frontal and occipital) without neck stiffness, no fevers overnight, no nausea or vomiting. Objective - Vital Signs/Intake and Output Vital Signs (last 24 hours): Temp Pulse Resp BP Pulse Ox 98.7 F 64 18 108/59 L 100 10/19/16 07:44 10/19/16 07:44 10/19/16 07:44 10/19/16 07:44 10/19/16 07:44 Intake and Output: 10/19/16 10/19/16 06:59 18:59 Intake Total 720 Balance 720 - Medications Medications: Current Medications Acetaminophen (Tylenol 325mg Tab) 650 mg PO Q6H PRN PRN Reason: TEMP>=99.5F/MILD PAIN/HEADACHE Last Admin: 10/19/16 05:42 Dose: 650 mg Hydromorphone HCl (Dilaudid) 0.5 mg IVP Q4H PRN PRN Reason: Pain, moderate (4-7) Last Admin: 10/18/16 06:30 Dose: 0.5 mg Fluconazole 100 mg/ (Miscellaneous) 50 mls @ 100 mls/hr IVPB DAILY [facility] PRN Reason: Protocol Last Admin: 10/18/16 09:23 Dose: 100 mls/hr Ceftriaxone Sodium (Rocephin 2 Gm Ivpb) 2 gm in 100 mls @ 100 mls/hr IVPB DAILY [facility] PRN Reason: Protocol Magnesium Oxide (Mag-Ox) 400 mg PO DAILY [facility] Last Admin: 10/18/16 12:11 Dose: 400 mg Ondansetron HCl (Zofran Inj) 4 mg IVP Q4H PRN PRN Reason: Nausea/Vomiting Pantoprazole Sodium (Protonix Ec Tab) 20 mg PO 0600,1600 [facility] Last Admin: 10/19/16 05:44 Dose: 20 mg Potassium Chloride (Klor-Con 10) 10 meq PO BRK [facility] Last Admin: 10/18/16 12:11 Dose: 10 meq - Labs Labs: 10/18/16 07:00 10/18/16 07:00 PT 12.9 Seconds (9.9-11.8) H 10/15/16 19:29 INR 1.19 (0.93-1.08) H 10/15/16 19:29 APTT 31.3 Seconds (23.7-30.8) H 10/15/16 19:29 - Constitutional Appears: Non-toxic, No Acute Distress - Head Exam Head Exam: NORMAL INSPECTION - Neck Exam Neck Exam: absent: Meningismus - Respiratory Exam Respiratory Exam: Decreased Breath Sounds - Cardiovascular Exam Cardiovascular Exam: +S1, +S2 - GI/Abdominal Exam GI & Abdominal Exam: Soft. absent: Tenderness Assessment and Plan - Assessment and Plan (Free Text) Plan: Assessment Left sided pyelonephritis, clinically improving Migraine headaches Plan switched Cefepime to Ceftriaxone and continue diflucan (day 4 of antibiotics); repeat blood and urine cx are negative results (previously grew E. coli); reviewed CT scan of the abdomen and pelvis from 2 days ago which shows the left pyelonephritis - when ready for discharge, the patient can be switched to PO Ciprofloxacin and PO diflucan to complete antoehr 7-10 days will continue to follow clinically
[2016-10-20] MEDS: Pantoprazole 20 mg EC Tab PO SCH (07:22)
[2016-10-20 07:31] LABS: ADD MANUAL DIFF? NO
[2016-10-20 07:33] LABS: BASO # 0.03 K/mm3 (0.0-2.0); BASO % 0.5 % (0.0-3.0); EOS # 0.1 (0.0-0.7); EOS % 2.2 % (1.5-5.0); GRAN # 3.43 (1.4-6.5); GRAN % 61.8 % (50.0-68.0); HEMATOCRIT 33.4 % (36.0-48.0); LYMPH # 1.6 (1.2-3.4); LYMPH % 28.5 % (22.0-35.0); MEAN CELL VOLUME 86.5 fL (80.0-105.0); MEAN CORPUSCULAR HEMOGLOBIN 27.2 pg (25.0-35.0); MEAN CORPUSCULAR HGB CONC 31.4 g/dl (31.0-37.0); MEAN PLATELET VOLUME 9.5 fl (7.0-11.0); MONO # 0.4 (0.1-0.6); PLATELET COUNT 375 10^3/uL (120.0-450.0); RED CELL DISTRIBUTION WIDTH 14.3 % (11.5-14.5); WHITE BLOOD COUNT 5.6 10^3/ul (4.5-11.0)
[2016-10-20 07:57] LABS: ALKALINE PHOSPHATASE 130 U/L (38-133); ALT/SGPT 87 U/L (7-56); AST/SGOT 66 U/L (15-39); BILIRUBIN,DIRECT 0.3 mg/dL (0.0-0.4); BILIRUBIN,TOTAL 0.4 mg/dL (0.2-1.3); BLOOD UREA NITROGEN 11 mg/dL (7-21); CALCIUM 9.5 mg/dL (8.4-10.5); CARBON DIOXIDE 28 mmol/L (21-33); CHLORIDE 102 mmol/L (98-107); GFR AFRICAN-AMERICAN > 60; GLUCOSE,RANDOM 93 mg/dL (70-110); SODIUM 141 mmol/L (132-148); TOTAL PROTEIN 7.9 g/dL (5.8-8.3)
[2016-10-20] MEDS: Potassium Chloride 10 mEq ER Tab PO SCH (08:25)
[2016-10-20] MEDS: HYDROmorphone 0.5 mg/0.5 ml ISec IVP PRN (08:31)
[2016-10-20] MEDS: cefTRIAXone 2 GM IN NS 2 GM/100 ML BAG IVPB SCH (09:04)
[2016-10-20] MEDS: Magnesium Oxide 400 mg Tab UD PO SCH (09:04)
[2016-10-20] MEDS: Fluconazole IV 200mg/100 ml NS 100 MG in Premixed IV 1 EA IVPB SCH (09:58)
[2016-10-20 10:27] VITALS: BP 108/50; PULSE 63; TEMP 98.4
[2016-10-20] MEDS ORDERED: Magnesium Citrate Oral SOL (300 ml) PO ONE (10:37)
--- NOTE | 2016-10-20 11:43 | DS ---
The patient is today seen lying in the bed 368, bed 1. The patient is complaining of some mild heada quirino. The patient is complaining of constipation. The patient denies dysuria, frequency. PHYSICAL EXAMINATION: VITAL SIGNS: T-max 98.4, pulse 63, blood pressure 108/50, respirations 20, O2 sat 100%. HEAD: Normocephalic, atraumatic. HEENT: Shows pink conjunctivae, anicteric sclerae. No oropharyngeal lesion. NECK: No neck rigidity. CHEST: Symmetrical. LUNGS: Show no rales, crackles, or wheezing. CARDIOVASCULAR: S1, S2, regular rhythm. ABDOMEN: Soft, positive bowel sounds. Mild left periumbilical tenderness. Positive mild decreased left costovertebral angle tenderness. GENITALIA: Female. RECTAL: Deferred. EXTREMITIES: Show no pitting edema, no calf tenderness, no Homans' sign. NEUROLOGIC: The patient is alert, awake, oriented x 3. Cranial nerves II-XII intact. GAIT: Independent. VASCULAR: Palpable pulses. MUSCULOSKELETAL: Shows a body mass index of 26. PSYCHIATRIC: Negative. DIAGNOSTICS: WBC 5.6, hemoglobin/hematocrit 10.5 and 33.4, platelet 375. ESR is persistently elevat ed at 61-62. PT, PTT 12.9. Sodium 141, potassium 4.0, chloride 102, CO2 28, anion gap 15, BUN 11, c reatinine 0.7, GFR greater than 60, glucose 93, calcium 9.5, magnesium 2.0, AST 66, ALT 87. RPR nega tive. Hepatitis A, B, C serologies and HIV negative. Repeat urine culture negative. FINAL IMPRESSION AND DISCHARGE DIAGNOSES: 1. Escherichia coli left-sided pyelonephritis, cystitis, urinary tract infection with funguria 2. Migraine headache. 3. Fever of 100.2. 4. Transient tachycardia. 5. Hypovolemia with hypotension, asymptomatic. 6. Normocytic anemia. 7. Normocytic iron deficiency anemia. 8. Elevated ESR of 70, 61 and 62. 9. Granulocytosis. 10. Mild coagulopathy with elevated PT/PTT of 29.9 and 31.3, INR of 1.19. 11. Transaminitis. 12. Iron deficiency normocytic anemia. 13. Elevated high sensitivity C-reactive protein of greater than 15. 14. Elevated cardiac C-reactive protein of 144 and 93. 15. History of menorrhagia. 16. Escherichia coli pyelonephritis with proteinuria, hematuria, pyuria, bacteriuria and funguria. 17. Constipation. 18. Hypokalemia. 19. Hypomagnesemia. PLAN: At this time, patient has been cleared by infectious disease, recommending the patient can be discharged on p.o. Cipro and Diflucan to complete 7-10 days of antibiotics. At present, the patient has been cleared for discharge. The patient will be given a bottle of magnesium citrate prior to dis charge as patient is constipated since last 3 days. DISCHARGE MEDICATIONS: Cipro 500 mg twice a day, Diflucan 200 mg daily for 7-10 days. The patient i s to resume her Percocet 5/325 b.i.d. p.r.n. given to the patient on 10/13 from the ER. The patient i s to be discharged home. DISCHARGE FOLLOWUP: With Dr. Ballesteros within 1 week. The patient's discharge medications were sent to the patient's pharmacy electronically. The patient was advised to drink lots of fluids. The patient was advised to avoid tampon use. Time spent in the entire discharge process more than 45 minutes. The patient was explained about her diagnosis, test results, recommendation by all physicians involv ed in the care of the patient on a daily basis which she acknowledged and understood. All questions and concerns answered. Dictated and electronically signed, not read. Claude Ballesteros MD cc: [id number] TT: 10/20/2016 11:42:08 ok
--- NOTE | 2016-10-20 16:32 | CP.PCM.PN ---
Subjective - Date & Time of Evaluation Date of Evaluation: 10/20/16 Time of Evaluation: 10:30 - Subjective Subjective: Still with migraine headaches but a little better, no fevers overnight, improved left flank pain, no nausea or vomiting. Objective - Vital Signs/Intake and Output Vital Signs (last 24 hours): Temp Pulse Resp BP Pulse Ox 98.5 F 61 20 112/94 H 100 10/19/16 16:00 10/19/16 16:00 10/19/16 16:00 10/19/16 16:00 10/19/16 16:00 Intake and Output: 10/20/16 10/20/16 06:59 18:59 Intake Total 0 Balance 0 - Medications Medications: Current Medications Acetaminophen (Tylenol 325mg Tab) 650 mg PO Q6H PRN PRN Reason: TEMP>=99.5F/MILD PAIN/HEADACHE Last Admin: 10/19/16 05:42 Dose: 650 mg Hydromorphone HCl (Dilaudid) 0.5 mg IVP Q4H PRN PRN Reason: Pain, moderate (4-7) Last Admin: 10/19/16 16:55 Dose: 0.5 mg Fluconazole 100 mg/ (Miscellaneous) 50 mls @ 100 mls/hr IVPB DAILY [facility] PRN Reason: Protocol Last Admin: 10/19/16 11:20 Dose: 100 mls/hr Ceftriaxone Sodium (Rocephin 2 Gm Ivpb) 2 gm in 100 mls @ 100 mls/hr IVPB DAILY [facility] PRN Reason: Protocol Last Admin: 10/19/16 09:37 Dose: 100 mls/hr Magnesium Oxide (Mag-Ox) 400 mg PO DAILY [facility] Last Admin: 10/19/16 09:36 Dose: 400 mg Ondansetron HCl (Zofran Inj) 4 mg IVP Q4H PRN PRN Reason: Nausea/Vomiting Pantoprazole Sodium (Protonix Ec Tab) 20 mg PO 0600,1600 [facility] Last Admin: 10/20/16 07:22 Dose: 20 mg Potassium Chloride (Klor-Con 10) 10 meq PO BRK [facility] Last Admin: 10/20/16 08:25 Dose: 10 meq - Labs Labs: 10/20/16 07:00 10/20/16 07:00 PT 12.9 Seconds (9.9-11.8) H 10/15/16 19:29 INR 1.19 (0.93-1.08) H 10/15/16 19:29 APTT 31.3 Seconds (23.7-30.8) H 10/15/16 19:29 - Constitutional Appears: Non-toxic, No Acute Distress - Head Exam Head Exam: NORMAL INSPECTION - Neck Exam Neck Exam: absent: Lymphadenopathy, Meningismus - Respiratory Exam Respiratory Exam: Decreased Breath Sounds - Cardiovascular Exam Cardiovascular Exam: +S1, +S2 - GI/Abdominal Exam GI & Abdominal Exam: Soft. absent: Tenderness Assessment and Plan - Assessment and Plan (Free Text) Plan: Assessment Left sided pyelonephritis, clinically improving Migraine headaches Plan on Ceftriaxone and continue diflucan (day 5 of antibiotics); repeat blood and urine cx are negative results (previously grew E. coli); reviewed CT scan of the abdomen and pelvis from 2 days ago which shows the left pyelonephritis - as discussed with Dr. Ballesteros, when ready for discharge, the patient can be switched to PO Ciprofloxacin and PO diflucan to complete another 7-10 days
[2016-10-21 05:10] LABS: CARDIO CRP(R) 35.1 mg/L
== END 2016-10-20 11:39 | disposition home or self-care (01) | DRG 690 ==
LOC: ED 14:19 → ERH 18:43 → 3RNO 21:04
PROVIDERS: ADMIT Internal Medicine; ATTEND Internal Medicine
DX: N10 Acute pyelonephritis (principal); N30.91 Cystitis, unspecified with hematuria; B96.20 Unspecified Escherichia coli [E. coli] as the cause of diseases classified elsewhere; G43.909 Migraine, unspecified, not intractable, without status migrainosus; I95.9 Hypotension, unspecified; E86.1 Hypovolemia; D50.9 Iron deficiency anemia, unspecified; K59.00 Constipation, unspecified; E87.6 Hypokalemia; E83.42 Hypomagnesemia; N83.201 Unspecified ovarian cyst, right side; N83.202 Unspecified ovarian cyst, left side; R79.1 Abnormal coagulation profile

== ENCOUNTER 2016-11-22 18:49 | Emergency (ER) | payer OTHER ==
[2016-11-22 18:54] VITALS: BMI 24.8
[2016-11-22 18:59] VITALS: RESP 18; TEMP 98.2; O2SAT 100
[2016-11-22 19:32] LABS: URINE BILIRUBIN NEGATIVE (NEGATIVE); URINE BLOOD LARGE (NEGATIVE); URINE GLUCOSE (UA) NEGATIVE (NEGATIVE); URINE LEUKOCYTE ESTERASE NEGATIVE Leu/uL (NEGATIVE); URINE NITRATE NEGATIVE (NEGATIVE); URINE PROTEIN NEGATIVE mg/dL (<30 mg/dL); URINE UROBILINOGEN 0.2 E.U./dL (<1 E.U./dL)
[2016-11-22 19:39] LABS: URINE APPEARANCE CLEAR (CLEAR); URINE COLOR YELLOW (YELLOW)
[2016-11-22 20:04] LABS: URINE BACTERIA MOD (NEG); URINE WBC 0 - 2 /hpf (0-6)
[2016-11-22 20:52] LABS: BASO # 0.02 K/mm3 (0.0-2.0); BASO % 0.5 % (0.0-3.0); GRAN # 1.92 (1.4-6.5); GRAN % 46.6 % (50.0-68.0); HEMOGLOBIN 12.1 gm/dL (12.0-16.0); LYMPH # 1.8 (1.2-3.4); LYMPH % 44.4 % (22.0-35.0); MEAN CELL VOLUME 88.9 fL (80.0-105.0); MEAN CORPUSCULAR HEMOGLOBIN 29.8 pg (25.0-35.0); MEAN CORPUSCULAR HGB CONC 33.5 g/dl (31.0-37.0); MEAN PLATELET VOLUME 10.4 fl (7.0-11.0); MONO # 0.3 (0.1-0.6); MONO % 7.5 % (1.0-6.0); PLATELET COUNT 205 10^3/uL (120.0-450.0); RBC 4.06 10^6/uL (3.5-6.1); RED CELL DISTRIBUTION WIDTH 16.3 % (11.5-14.5); WHITE BLOOD COUNT 4.1 10^3/ul (4.5-11.0)
[2016-11-22 20:58] LABS: ALB/GLOB RATIO 1.3 (1.1-1.8); ALBUMIN 4.6 g/dL (3.0-4.8); ALT/SGPT 120 U/L (7-56); AST/SGOT 85 U/L (15-39); BLOOD UREA NITROGEN 10 mg/dL (7-21); CALCIUM 9.4 mg/dL (8.4-10.5); GFR AFRICAN-AMERICAN > 60; GFR NON-AFRICAN AMERICAN > 60
--- NOTE | 2016-11-22 21:23 | ED PDOC ---
Arrival/HPI - General Chief Complaint: Female Genitourinary Time Seen by Provider: 11/22/16 19:12 Historian: Patient - History of Present Illness Narrative History of Present Illness (Text): 11/22/16 21:20 26yr old female presents today with prior hx of pyelonephritis presents today with lower abdominal cramping and hematuria that started today. no fever/ chills. pt states she completed abx for pyelonephritis and was feeling better. Pt states then about a week ago she developed slight lower abdominal cramping and then today developed hematuria. denies vaginal bleeding. denies vaginal bleeding. no back pain. no fever/chills. no other complaints. Time/Duration: Prior to Arrival Symptom Course: Unchanged Quality: Cramping Severity Level: 3 Past Medical History - Provider Review Nursing Documentation Reviewed: Yes - Travel History Have you recently traveled outside [place] w/in the past 3 mons?: No - Past History Past History: No Previous - Infectious Disease Hx of Infectious Diseases: None - Tetanus Immunization Tetanus Immunization: Unknown - Past Medical History Past Medical History: No Previous - Musculoskeletal/Rheumatological Hx Falls: No - Genitourinary/Gynecological Other/Comment: Pyelonephritis - Psychiatric Hx Psychophysiologic Disorder: No Hx Substance Use: No - Surgical History Hx Appendectomy: Yes Hx Section: Yes - Anesthesia Hx Anesthesia: Yes Hx Anesthesia Reactions: No Hx Malignant Hyperthermia: No Family/Social History - Physician Review Nursing Documentation Reviewed: Yes Family/Social History: Unknown Family HX Smoking Status: Never Smoked Hx Alcohol Use: No Hx Substance Use: No Allergies/Home Meds Allergies/Adverse Reactions: Allergies No Known Allergies Allergy (Verified 10/14/16 14:17) Home Medications: Home Meds Medication Instructions Recorded Confirmed Acetaminophen/Butalbital/Caf 1 tab PO TID PRN 11/22/16 11/22/16 [Fioricet] Norgestimate-Ethinyl Estradiol 1 tab PO DAILY 11/22/16 11/22/16 [Trinessa Tablet] Review of Systems - Review of Systems Constitutional: absent: Fatigue, Fevers Respiratory: absent: SOB, Cough Cardiovascular: absent: Chest Pain, Palpitations Gastrointestinal: Abdominal Pain. absent: Constipation, Diarrhea, Nausea, Vomiting Genitourinary Female: Hematuria. absent: Dysuria, Frequency, Vaginal Bleeding, Vaginal Discharge Musculoskeletal: absent: Arthralgias, Back Pain Skin: absent: Rash, Pruritis Neurological: absent: Headache, Dizziness Psychiatric: absent: Anxiety, Depression Physical Exam Vital Signs Reviewed: Yes Vital Signs Temp Pulse Resp BP Pulse Ox 11/22/16 22:42 74 18 129/69 100 11/22/16 18:57 98.2 F 77 18 117/79 100 Temperature: Afebrile Blood Pressure: Normal Pulse: Regular Respiratory Rate: Normal Appearance: Positive for: Well-Appearing, Non-Toxic, Comfortable Pain Distress: None Mental Status: Positive for: Alert and Oriented X 3 - Systems Exam Head: Present: Atraumatic Mouth: Present: Moist Mucous Membranes Neck: Present: Normal Range of Motion Respiratory/Chest: Present: Clear to Auscultation, Good Air Exchange. No: Respiratory Distress, Accessory Muscle Use Cardiovascular: Present: Regular Rate and Rhythm, Normal S1, S2. No: Murmurs Abdomen: Present: Tenderness (minimal lower abdominal tenderness), Normal Bowel Sounds. No: Distention, Peritoneal Signs, Rebound, Guarding Back: Present: Normal Inspection. No: CVA Tenderness Neurological: Present: GCS=15 Skin: Present: Warm, Dry, Normal Color. No: Rashes Psychiatric: Present: Alert, Oriented x 3 Medical Decision Making ED Course and Treatment: 11/22/16 21:24 Patient is nontoxic well appearing with stable vital signs presenting with [ severe] abdominal pain CBC wnl CMP elevated lfts Urinalysis + blood, moderate bacteria will send urine Culture CAT scan:FINDINGS: Lower thorax: No acute findings. ABDOMEN: Liver: Unremarkable. Gallbladder and bile ducts: The gallbladder is contracted with no stones. No ductal dilation. Pancreas: Unremarkable. No ductal dilation. Spleen: Unremarkable. No splenomegaly. Adrenals: Unremarkable. No mass. Kidneys and ureters: Unremarkable. No obstructing stones. No hydronephrosis. Stomach and bowel: Minimal colonic diverticulosis without diverticulitis. No obstruction. Appendix: Sutures at the cecal tip suggesting prior appendectomy. PELVIS: Bladder: Upper normal thickness of bladder wall in nondistended state. No perivesicular induration. No stones. Reproductive: Unremarkable as visualized. ABDOMEN and PELVIS: Intraperitoneal space: Unremarkable. No free air. No significant fluid collection. Bones/joints: No acute fracture. No dislocation. Soft tissues: The small broad-based umbilical hernia. Vasculature: Unremarkable. No abdominal aortic aneurysm. Lymph nodes: Unremarkable. No enlarged lymph nodes. IMPRESSION: 1. There has been little change since 10/14/2016. No renal or ureteral calculi are evident and there is no evidence of obstructive uropathy. Changes of pyelonephritis are not well appreciated on a noncontrast scan and are not excluded. 2. Minimal sigmoid diverticulosis without diverticulitis. Patient reassessment:pt comfortable in er. states she feels better. old visits reviewed; pt was placed on cipro for last admission. keflex given po. Discussed all results with patient in depth. will d/c home to f/u with pmd and urologist. Patient verbalized full agreement with and understanding of discharge instructions. States that she agrees with the plan and disposition. Verbalized and repeated discharge instructions and plan. I have given the patient opportunity to ask any additional questions. all aspects of this case were discussed the attending of record. Impression: Abdominal pain, hematuria, UTI Motrin every 6 hours as needed for pain keflex; 1 capsule 4 times daily x 7days. Follow up with primary care physician within the next 2 days Follow up with the urologist within the next 2 days. Return immediately if symptoms worsen persist or if new symptoms develop: High fevers, increasing pain, vomiting, diarrhea or any other concerning symptoms develop - Lab Interpretations Lab Results: 11/22/16 20:41 11/22/16 20:41 Lab Results 11/22/16 20:41: WBC 4.1 L D, RBC 4.06, Hgb 12.1, Hct 36.1, MCV 88.9, MCH 29.8, MCHC 33.5, RDW 16.3 H, Plt Count 205, MPV 10.4, Gran % 46.6 L, Lymph % (Auto) 44.4 H, [place] % (Auto) 7.5 H, Eos % (Auto) 1.0 L, Baso % (Auto) 0.5, Gran # 1.92 , Lymph # 1.8, [place] # 0.3, Eos # 0.0, Baso # 0.02 11/22/16 20:41: Sodium 140, Potassium 4.1, Chloride 101, Carbon Dioxide 27, Anion Gap 16, BUN 10, Creatinine 0.7, Est GFR ( Amer) > 60, Est GFR (Non- Af Amer) > 60, Random Glucose 87, Calcium 9.4, Total Bilirubin 0.7, AST 85 H, ALT 120 H, Alkaline Phosphatase 90, Total Protein 8.3, Albumin 4.6, Globulin 3.6 , Albumin/Globulin Ratio 1.3 11/22/16 17:10: Urine Color Yellow, Urine Appearance Clear, Urine pH 6.0, Ur Specific [place] 1.025, Urine Protein Negative, Urine Glucose (UA) Negative, Urine Ketones Negative, Urine Blood Large H, Urine Nitrate Negative, Urine Bilirubin Negative, Urine Urobilinogen 0.2, Ur Leukocyte Esterase Negative, Urine RBC 2 - 5, Urine WBC 0 - 2, Ur Epithelial Cells 3 - 4, Urine Bacteria Mod , Urine Other [facility] - RAD Interpretation Radiology Orders: 11/22/16 19:47 ABD & PELVIS W/O PO OR IV CONT [CT] Stat - Medication Orders Current Medication Orders: Discontinued Medications Cephalexin Monohydrate (Keflex) 500 mg PO STAT [facility] PRN Reason: Protocol Stop: 11/22/16 21:16 Last Admin: 11/22/16 21:15 Dose: 500 mg Disposition/Present on Arrival - Present on Arrival Any Indicators Present on Arrival: No History of DVT/PE: No History of Uncontrolled Diabetes: No Urinary Catheter: No History of Decub. Ulcer: No History Surgical Site Infection Following: None - Disposition Have Diagnosis and Disposition been Completed?: Yes Diagnosis: Abdominal pain, Urinary tract infection Disposition: HOME/ ROUTINE Disposition Time: 21:44 Patient Plan: Discharge Condition: GOOD Discharge Instructions (ExitCare): Urinary Tract Infection in Women (ED), Acute Hematuria (ED) Additional Instructions: Motrin every 6 hours as needed for pain keflex; 1 capsule 4 times daily x 7days. Follow up with primary care physician within the next 2 days Follow up with the urologist within the next 2 days. Return immediately if symptoms worsen persist or if new symptoms develop: High fevers, increasing pain, vomiting, diarrhea or any other concerning symptoms develop Prescriptions: Cephalexin [Keflex] 500 mg PO QID #28 capsule Ibuprofen [Motrin] 600 mg PO Q6H PRN #20 tab PRN Reason: pain/fever reduction Referrals: Alice Dutta MD [Primary Care Provider] - Follow up with primary Claude Ballesteros MD [Staff Provider] - Follow up with primary Precious Alcala MD [Staff Provider] - Follow up with primary Forms: WORK NOTE
[2016-11-22 22:43] VITALS: BP 129/69; PULSE 74
--- NOTE | 2016-11-23 07:42 | CT ---
PROCEDURE: CT Abdomen and Pelvis without intravenous contrast HISTORY: Abdominal pain/hematuria COMPARISON: 10/14/2016 TECHNIQUE: CT scan of the abdomen and pelvis was performed without administration of intravenous contrast. Oral contrast was not administered. Coronal and sagittal reformatted images were obtained. Radiation dose: Total exam DLP = 686.17 mGy-cm. This CT exam was performed using one or more of the following dose reduction techniques: Automated exposure control, adjustment of the mA and/or kV according to patient size, and/or use of iterative reconstruction technique. FINDINGS: LOWER THORAX: There is dependent atelectasis in the lung bases. LIVER: The liver is normal in size. No gross lesion or ductal dilatation. GALLBLADDER AND BILE DUCTS: There are no calcified gallstones. PANCREAS: The pancreas is normal in size. No gross lesion or ductal dilatation. SPLEEN: The spleen is normal in size. ADRENALS: Unremarkable. No mass. KIDNEYS AND URETERS: Both kidneys are normal in size without nephrolithiasis. There is mild fullness in the right collecting system and mild prominence of the right ureteral without evidence of obstructing stone. There is no left hydronephrosis. The left ureteral is not dilated. VASCULATURE: No aortic aneurysm. BOWEL: The small bowel loops are normal in caliber. There is no evidence of bowel dilatation or obstruction. There is moderate amount of stool in the colon. APPENDIX: Surgically absent. PERITONEUM: No free fluid. No free air. LYMPH NODES: No enlarged lymph nodes. BLADDER: Grossly normal in appearance. REPRODUCTIVE: The uterus is normal in size. BONES: No acute fracture. OTHER FINDINGS: None. IMPRESSION: 1. Mild fullness in the right collecting system and mild prominence of the right ureteral without evidence of obstructing stone. Pyelonephritis cannot be excluded on a noncontrast CT examination. 2. Constipation. A preliminary report was provided by [id number].
== END 2016-11-22 22:00 | disposition home or self-care (01) ==
LOC: ED 18:49
DX: N39.0 Urinary tract infection, site not specified (principal); R10.9 Unspecified abdominal pain